=== PATIENT | male | born 1940 | race Caucasian/White ===

== ENCOUNTER 2016-12-27 08:41 | Outpatient (CLI) | payer MEDICARE, OTHER | END 2016-12-27 08:42 | disposition home or self-care (01) | DX: N18.3 Chronic kidney disease, stage 3 (moderate) (principal); I10 Essential (primary) hypertension; E11.51 Type 2 diabetes mellitus with diabetic peripheral angiopathy without gangrene ==

== ENCOUNTER 2017-05-09 08:31 | Outpatient (CLI) | payer MEDICARE, OTHER ==
[2017-05-09 13:02] LABS: ALBUMIN/GLOBULIN RATIO 1.1 (1.0-2.2); BILIRUBIN,TOTAL 0.2 mg/dL (0.2-1.0); CALCIUM 8.8 mg/dL (8.5-10.3); CREATININE 1.2 mg/dL (0.6-1.2); POTASSIUM 4.3 mmol/L (3.5-5.0); TOTAL PROTEIN 7.2 g/dL (6.7-8.2)
[2017-05-09 13:22] LABS: HEMOGLOBIN A1C 1.02 g/dL
== END 2017-05-09 08:32 | disposition home or self-care (01) ==
LOC: LAB.WCP 08:31
PROVIDERS: ATTEND Family Medicine
DX: N18.3 Chronic kidney disease, stage 3 (moderate) (principal)
CPT/HCPCS: 36415; 80053; 83036

== ENCOUNTER 2017-08-08 10:00 | Outpatient (CLI) | payer MEDICARE, OTHER ==
[2017-08-08 13:33] LABS: ALBUMIN/GLOBULIN RATIO 1.1 (1.0-2.2); BILIRUBIN,TOTAL 0.4 mg/dL (0.2-1.0); CALCIUM 8.8 mg/dL (8.5-10.3); CREATININE 1.3 mg/dL (0.6-1.2); POTASSIUM 3.8 mmol/L (3.5-5.0); TOTAL PROTEIN 7.4 g/dL (6.7-8.2)
[2017-08-08 14:05] LABS: HEMOGLOBIN A1C 1.02 g/dL
== END 2017-08-08 10:01 | disposition home or self-care (01) ==
LOC: LAB.WCP 10:00
PROVIDERS: ATTEND Family Medicine
DX: E11.51 Type 2 diabetes mellitus with diabetic peripheral angiopathy without gangrene (principal)
CPT/HCPCS: 36415; 80053; 83036

== ENCOUNTER 2017-08-22 08:00 | Outpatient (CLI) | payer MEDICARE, OTHER ==
[2017-08-22 14:01] LABS: CHOL/HDL RATIO 5.3 (<5.0); CHOLESTEROL 192 mg/dL; HDL CHOLESTEROL 36 mg/dL
[2017-08-22 14:26] LABS: LDL/HDL RATIO 3.2 (<3.6); TRIGLYCERIDES 199 mg/dL; VLDL CHOLESTEROL 40 mg/dL
== END 2017-08-22 08:01 | disposition home or self-care (01) ==
LOC: LAB.WCP 08:00
PROVIDERS: ATTEND Family Medicine
DX: I25.10 Atherosclerotic heart disease of native coronary artery without angina pectoris (principal); E78.5 Hyperlipidemia, unspecified
CPT/HCPCS: 36415; 80061

== ENCOUNTER 2017-10-25 08:00 | Outpatient (CLI) | payer MEDICARE, OTHER ==
[2017-10-25 13:25] LABS: ALBUMIN 3.8 g/dL (3.2-5.5); ALBUMIN/GLOBULIN RATIO 1.1 (1.0-2.2); ALKALINE PHOSPHATASE 53 IU/L (42-121); ALT ALANINE AMINOTRANSFERASE 40 IU/L (10-60); AST ASPARTATE AMINOTRANSFERASE 34 IU/L (10-42); BILIRUBIN,TOTAL 0.3 mg/dL (0.2-1.0); BUN - BLOOD UREA NITROGEN 24 mg/dL (6-20); CALCIUM 8.5 mg/dL (8.5-10.3); CARBON DIOXIDE - CO2 26 mmol/L (21-32); CHLORIDE 103 mmol/L (101-111); CHOL/HDL RATIO 3.7 (<5.0); CHOLESTEROL 126 mg/dL; CREATININE 1.4 mg/dL (0.6-1.2); GFR - MDRD 49 (>89); GLUCOSE 168 mg/dL (70-100); HDL CHOLESTEROL 34 mg/dL; LDL CHOLESTEROL,CALCULATED 65 mg/dL; LDL/HDL RATIO 1.9 (<3.6); SODIUM 135 mmol/L (135-145); TOTAL PROTEIN 7.4 g/dL (6.7-8.2); VLDL CHOLESTEROL 27 mg/dL
[2017-10-25 13:52] LABS: HB2 TOTAL 15.8 g/dL; HEMOGLOBIN A1C 0.92 g/dL; HEMOGLOBIN A1C % 7.5 % (4.6-6.2)
== END 2017-10-25 08:01 | disposition home or self-care (01) ==
LOC: LAB.WCP 08:00
PROVIDERS: ATTEND Family Medicine
DX: I25.10 Atherosclerotic heart disease of native coronary artery without angina pectoris (principal); E78.5 Hyperlipidemia, unspecified; E11.51 Type 2 diabetes mellitus with diabetic peripheral angiopathy without gangrene; I10 Essential (primary) hypertension; Z79.899 Other long term (current) drug therapy
CPT/HCPCS: 36415; 80053; 80061; 82043; 83036; 83721; 84443

== ENCOUNTER 2018-03-28 09:10 | Outpatient (CLI) | payer MEDICARE, OTHER ==
[2018-03-28 12:45] LABS: BASOPHILS % (AUTO) 0.5 %; EOSINOPHILS # (AUTO) 0.2 10^3/uL (0.0-0.7); EOSINOPHILS % (AUTO) 3.3 %; HGB - HEMOGLOBIN 13.9 g/dL (14.0-18.0); LYMPHOCYTES # (AUTO) 0.9 10^3/uL (1.5-3.5); LYMPHOCYTES % (AUTO) 15.6 %; MEAN CORPUSCULAR HEMOGLOBIN 28.4 pg (27.0-31.0); MEAN CORPUSCULAR HGB CONC 32.8 g/dL (32.0-36.0); MEAN CORPUSCULAR VOLUME 86.7 fL (80.0-94.0); MEAN PLATELET VOLUME 8.6 fL (7.4-11.4); MONOCYTES # (AUTO) 0.7 10^3/uL (0.0-1.0); MONOCYTES % (AUTO) 11.4 %; NEUTROPHILS % (AUTO) 69.2 %; PLT - PLATELET COUNT 218 10^3/uL (130-450); RED BLOOD COUNT 4.88 10^6/uL (4.70-6.10); RED CELL DISTRIBUTION WIDTH 15.3 % (12.0-15.0); WHITE BLOOD COUNT 5.8 x10^3/uL (4.8-10.8)
[2018-03-28 12:53] LABS: HB2 TOTAL 15.7 g/dL; HEMOGLOBIN A1C 0.98 g/dL; HEMOGLOBIN A1C % 7.9 % (4.6-6.2)
[2018-03-28 13:00] LABS: ALBUMIN 3.5 g/dL (3.2-5.5); ALBUMIN/GLOBULIN RATIO 0.9 (1.0-2.2); ALKALINE PHOSPHATASE 56 IU/L (42-121); ALT ALANINE AMINOTRANSFERASE 37 IU/L (10-60); AST ASPARTATE AMINOTRANSFERASE 31 IU/L (10-42); BILIRUBIN,TOTAL 0.6 mg/dL (0.2-1.0); BUN - BLOOD UREA NITROGEN 25 mg/dL (6-20); CALCIUM 8.6 mg/dL (8.5-10.3); CARBON DIOXIDE - CO2 28 mmol/L (21-32); CHLORIDE 100 mmol/L (101-111); CHOL/HDL RATIO 3.3 (<5.0); CHOLESTEROL 117 mg/dL; CREATININE 1.4 mg/dL (0.6-1.2); GFR - MDRD 49 (>89); GLUCOSE 131 mg/dL (70-100); HDL CHOLESTEROL 35 mg/dL; LDL CHOLESTEROL,CALCULATED 61 mg/dL; LDL/HDL RATIO 1.7 (<3.6); SODIUM 134 mmol/L (135-145); TOTAL PROTEIN 7.3 g/dL (6.7-8.2); VLDL CHOLESTEROL 21 mg/dL
== END 2018-03-28 09:11 | disposition home or self-care (01) ==
LOC: LAB.WCP 09:10
PROVIDERS: ATTEND Family Medicine
DX: E78.5 Hyperlipidemia, unspecified (principal); I25.10 Atherosclerotic heart disease of native coronary artery without angina pectoris; E11.51 Type 2 diabetes mellitus with diabetic peripheral angiopathy without gangrene
CPT/HCPCS: 36415; 80053; 80061; 83036; 83721; 85025

== ENCOUNTER 2018-09-28 08:44 | Outpatient (CLI) | payer MEDICARE, OTHER ==
[2018-09-28 14:03] LABS: ALBUMIN 3.7 g/dL (3.2-5.5); BILIRUBIN,TOTAL 0.5 mg/dL (0.2-1.0); CALCIUM 8.6 mg/dL (8.5-10.3); CREATININE 1.3 mg/dL (0.6-1.2); TOTAL PROTEIN 7.4 g/dL (6.7-8.2)
[2018-09-28 14:07] LABS: HB2 TOTAL 14.7 g/dL; HEMOGLOBIN A1C 0.72 g/dL; HEMOGLOBIN A1C % 6.6 % (4.6-6.2)
== END 2018-09-28 23:59 | disposition home or self-care (01) ==
LOC: LAB.WCP 08:44
PROVIDERS: ATTEND Family Medicine
DX: E11.59 Type 2 diabetes mellitus with other circulatory complications (principal)
CPT/HCPCS: 36415; 80053; 83036

== ENCOUNTER 2019-01-02 08:00 | Outpatient (CLI) | payer MEDICARE, OTHER ==
[2019-01-02 13:22] LABS: ALBUMIN 3.7 g/dL (3.2-5.5); ALBUMIN/GLOBULIN RATIO 1.1 (1.0-2.2); BILIRUBIN,TOTAL 0.6 mg/dL (0.2-1.0); CALCIUM 8.8 mg/dL (8.5-10.3); CREATININE 1.2 mg/dL (0.6-1.2)
[2019-01-02 13:57] LABS: HB2 TOTAL 14.6 g/dL; HEMOGLOBIN A1C 0.77 g/dL
== END 2019-01-02 23:59 | disposition home or self-care (01) ==
LOC: LAB.WCP 08:00
PROVIDERS: ATTEND Family Medicine
DX: R05 Cough (principal); E11.51 Type 2 diabetes mellitus with diabetic peripheral angiopathy without gangrene
CPT/HCPCS: 36415; 80053; 82043; 83036

== ENCOUNTER 2019-02-09 07:34 | Outpatient (CLI) | payer MEDICARE, OTHER ==
[2019-02-09] MEDS ORDERED: IOVERSOL 320 100 ML VIAL IVP ONE ×3 (07:51→09:21)
[2019-02-09] MEDS ORDERED: IOVERSOL 320 50 ML VIAL ONE (07:51)
[2019-02-09 08:12] LABS: CREATININE 1.6 mg/dL (0.6-1.2)
[2019-02-09] MEDS ORDERED: IOVERSOL 320 50 ML VIAL PO ONE (09:26)
[2019-02-09] MEDS ORDERED: BARIUM SULFATE 176 GM BOTTLE PO ONE (09:53)
[2019-02-09] MEDS ORDERED: BARIUM SULFATE 135 ML BOTTLE PO ONE (09:53)
--- NOTE | 2019-02-09 10:05 | CT Report ---
Reason: DYSPHAGIA, FOOD STICKING Procedure Date: 02/09/2019 Accession Number: [id number] / [id number] Procedure: CT - Abdomen/Pelvis W CPT Code: FULL RESULT: EXAM: CT ABDOMEN AND PELVIS EXAM DATE: 02/09/2019 09:19 AM. CLINICAL HISTORY: Dysphagia. Patient reports food sticking in the distal esophagus. COMPARISONS: None. TECHNIQUE: Routine helical CT imaging was performed through the abdomen and pelvis. IV contrast: 80 mL of Optiray 320. Enteric contrast: Yes. Reconstructions: Coronal and sagittal. In accordance with CT protocol optimization, one or more of the following dose reduction techniques were utilized for this exam: automated exposure control, adjustment of mA and/or KV based on patient size, or use of iterative reconstructive technique. FINDINGS: Lung Bases: Dependent atelectasis in the lung bases. Liver: Normal. No masses. Gallbladder/Bile Ducts: Multiple stones in the gallbladder lumen. No gallbladder wall thickening or pericholecystic fluid. No intrahepatic or extrahepatic biliary dilation. Retroperitoneal calcification posterior and inferior to the ampulla of Vater. Spleen: Normal. Pancreas: Normal. Adrenal Glands: Normal. Kidneys: Interpolar region renal parenchymal scar. Left renal atrophy with poor parenchymal enhancement. No stones or hydronephrosis. Peritoneal Cavity/Bowel: Small hiatal hernia. Colonic diverticulosis without diverticulitis. The remainder of the intra-abdominal gastrointestinal tract is unremarkable. No free fluid, free air or adenopathy. No masses or acute inflammatory process. The appendix is well visualized and normal. Pelvic Organs: The bladder, prostate gland and seminal vesicles are unremarkable. Vasculature: Distal abdominal aortic aneurysm with aortobifemoral covered stents. The aneurysm measures 5 cm in AP diameter (series 3 image 38). Normal course and caliber of the inferior vena cava. Bones: Multilevel thoracic and lumbar spondylosis. Other: None. IMPRESSION: 1. Small hiatal hernia. 2. Colonic diverticulosis. 3. The remainder of the intra-abdominal gastrointestinal tract is unremarkable. 4. Postsurgical changes involving the distal abdominal aortic aneurysm. 5. Interpolar region right renal parenchymal scar and uniform left renal cortical atrophy. 6. Cholelithiasis without CT evidence for acute cholecystitis. RADIA
--- NOTE | 2019-02-09 10:16 | XRAY Report ---
Reason: DYSPAHGIA Procedure Date: 02/09/2019 Accession Number: [id number] / [id number] Procedure: FL - Esophogram CPT Code: FULL RESULT: EXAM: BARIUM ESOPHAGRAM EXAM DATE: 02/09/2019 09:52 AM. CLINICAL HISTORY: Dysphagia. COMPARISONS: None. TECHNIQUE: Routine double contrast esophagram. Fluoroscopy Time: 2 minutes 58 seconds. Number of Images: 17. FINDINGS: Swallowing Mechanism: Normal. No tracheal aspiration or penetration. Esophageal Motility: Present but diminished primary peristaltic stripping wave. No tertiary contractions observed. Mucosa: Mild nonspecific mucosal irregularity of the distal esophageal mucosa at the GE junction just above a small hiatal hernia. Area appeared to be dynamic with observation with no discrete ulceration or mass. Focal esophagitis cannot be excluded. Gastroesophageal Junction: Small hiatal hernia. No appreciable stricture or significant reflux. Other: None. IMPRESSION: 1. Small hiatal hernia. Mild mucosal irregularity just above the hiatal hernia without appreciable mass, stricture or ulceration. If there is persistent clinical concern, consider direct visualization to exclude esophagitis. 2. Present but weak/diminished peristaltic primary stripping wave. No tertiary contractions observed at this exam. RADIA
--- NOTE | 2019-02-09 10:52 | CT Report ---
Reason: DYSPHAGIA, FOOD STICKING Procedure Date: 02/09/2019 Accession Number: [id number] / [id number] Procedure: CT - CHEST W CPT Code: FULL RESULT: EXAM: CT CHEST EXAM DATE: 02/09/2019 09:19 AM. CLINICAL HISTORY: Dysphagia, food sticking. COMPARISONS: None. TECHNIQUE: Routine helical CT imaging was performed through the chest. IV contrast: 80 mL of Optiray 320 contrast. Reconstructions: Coronal and sagittal. In accordance with CT protocol optimization, one or more of the following dose reduction techniques were utilized for this exam: automated exposure control, adjustment of mA and/or KV based on patient size, or use of iterative reconstructive technique. FINDINGS: Vasculature: There is dilatation of the main pulmonary segment at 3.6 cm; right and left main pulmonary arteries are also prominent at 2.6 cm bilaterally. There is atherosclerotic ectasia of the aorta measuring 3.3 cm in the ascending segment. Lungs/Pleura: No nodules, bronchial thickening, consolidation, or edema. Small areas of dependent atelectasis No pericardial or pleural effusion. No pneumothorax. Mediastinum: Sequela of prior CABG. 4 chamber cardiac enlargement, but particularly the right ventricle. Heavy calcification of the [place] coronary arteries.. No adenopathy or masses. There is a small hiatal hernia. There is appearance of circumferential nonspecific wall thickening of the distal 2 cm of the esophagus just above the hiatal hernia which could be artifact from redundancy versus a true mucosal thickening. If there is persistent clinical concern, consider direct visualization with endoscopy. There is no discrete mass or ulceration, and there is no periesophageal adenopathy. Bones: Unremarkable. Visualized Abdomen: Dictated separately. Cholelithiasis without evidence of cholecystitis. Partial inclusion of aortic endograft. Other: None. IMPRESSION: 1. Small hiatal hernia. Appearance of nonspecific wall thickening versus artifactual redundancy due to hiatal hernia evolving distal 2 cm of the esophagus just above the GE junction. No appreciable mass, ulceration and no periesophageal adenopathy. If there is persistent clinical concern regarding symptoms, consider direct visualization to exclude esophagitis. 2. Four-chamber cardiac enlargement, most prominent in the right ventricle. Dilatation of the central pulmonary vessels. Constellation of findings suggests underlying pulmonary artery hypertension. 3. Atherosclerotic ectasia without aneurysmal dilatation of the thoracic aorta. RADIA
== END 2019-02-09 07:35 | disposition home or self-care (01) ==
LOC: LAB 07:34 → DI 07:35
PROVIDERS: ATTEND Surgery
DX: K44.9 Diaphragmatic hernia without obstruction or gangrene (principal); K57.30 Diverticulosis of large intestine without perforation or abscess without bleeding; I71.4 Abdominal aortic aneurysm, without rupture; N26.1 Atrophy of kidney (terminal); K80.20 Calculus of gallbladder without cholecystitis without obstruction; I51.7 Cardiomegaly; I77.810 Thoracic aortic ectasia
CPT/HCPCS: 36415; 71260; 74177; 74220; 82565; A9270; Q9967

== ENCOUNTER 2019-02-16 13:54 | Outpatient (CLI) | payer MEDICARE, OTHER | END 2019-02-16 13:55 | disposition home or self-care (01) | LOC: DI 13:54 | PROVIDERS: ATTEND Family Medicine | DX: I51.7 Cardiomegaly (principal); I77.810 Thoracic aortic ectasia | CPT/HCPCS: 93306 ==

== ENCOUNTER 2019-02-21 11:19 | Outpatient (CLI) | payer MEDICARE, OTHER ==
[2019-02-21 18:41] LABS: CALCIUM 9.1 mg/dL (8.5-10.3); CREATININE 1.3 mg/dL (0.6-1.2)
[2019-02-21 18:44] LABS: BASOPHILS % (AUTO) 0.7 %; EOSINOPHILS # (AUTO) 0.1 10^3/uL (0.0-0.7); EOSINOPHILS % (AUTO) 1.6 %; HGB - HEMOGLOBIN 13.7 g/dL (14.0-18.0); LYMPHOCYTES # (AUTO) 0.9 10^3/uL (1.5-3.5); LYMPHOCYTES % (AUTO) 12.8 %; MEAN CORPUSCULAR HEMOGLOBIN 27.7 pg (27.0-31.0); MEAN CORPUSCULAR HGB CONC 31.9 g/dL (32.0-36.0); MEAN CORPUSCULAR VOLUME 86.6 fL (80.0-94.0); MEAN PLATELET VOLUME 8.8 fL (7.4-11.4); MONOCYTES # (AUTO) 0.5 10^3/uL (0.0-1.0); MONOCYTES % (AUTO) 7.7 %; NEUTROPHILS # (AUTO) 5.4 10^3/uL (1.5-6.6); NEUTROPHILS % (AUTO) 77.2 %; PLT - PLATELET COUNT 225 10^3/uL (130-450); RED BLOOD COUNT 4.94 10^6/uL (4.70-6.10); RED CELL DISTRIBUTION WIDTH 15.3 % (12.0-15.0)
== END 2019-02-21 11:20 | disposition home or self-care (01) ==
LOC: LAB.WCP 11:19
PROVIDERS: ATTEND Family Medicine
DX: N18.3 Chronic kidney disease, stage 3 (moderate) (principal)
CPT/HCPCS: 36415; 80048; 85025

== ENCOUNTER 2019-03-01 15:37 | Observation (INO) | payer MEDICARE, OTHER ==
[~2019-03-01 15:37] MED LIST: DEXTROSE 50% ABBOJECT 25 GM/50 ML SYRINGE ONE; LACTATED RINGERS 1,000 ML IV ONE; LIDO GARGLE 30 ML BOTTLE TOP ONE; MIDAZOLAM 2 MG/2 ML VIAL IVP ONE; SODIUM CHLORIDE FLUSH 0.9% 10 ML SYRINGE IVP PRN; fentaNYL 100 MCG/2 ML VIAL IVP ONE
[2019-03-01] MEDS ORDERED: DEXTROSE 5%-0.9% NACL 1,000 ML IV SCH (16:00)
[2019-03-01] MEDS: SODIUM CHLORIDE FLUSH 0.9% 10 ML SYRINGE IVP SCH ×2 (16:22→23:34)
--- NOTE | 2019-03-01 16:56 | HISTORY & PHYSICAL EXAMINATION ---
Chief Complaint - Chief Complaint Chief Complaint: hypoglycemia, bradycardia History of Present Illness - Admitted From Admitted From:: [facility] - History Obtained From Records Reviewed: yes History obtained from: patient, chart review, Centricity Exam Limitations: none - History of Present Illness HPI Comment/Other: Juan Ramon Ramirez (Dick) is a 78-year old male with an extensive past medical history including essential hypertension, hyperlipidemia, coronary artery disease, status post 2 vessel CABG, CVA, dysphagia, insulin dependent diabetes mellitus type 2, BPH, erectile dysfunction, nocturia, and depression. He was brought into the hospital electively to undergo an EGD with Dr. Mukund Thomas. The procedure went well without any anesthesia related complications. Pre- procedure, the patient was found to have a documented blood glucose of 44, and was asymptomatic. He was given an amp of Dextrose, which brought his glucose to an acceptable value of 96. Post-procedure, he was found to again be down to 44 mg/dl. He was given a meal to help maintain his sugars. He was also found to have ongoing bradycardia with rates 40-50's. He was admitted to observation with D5 IV maintenance fluids, frequent blood sugar checks, and telemetry. History - Past Medical History Cardiovascular: reports: Hypertension, High cholesterol, Other Respiratory: reports: None Neuro: reports: Peripheral neuropathy Endocrine/Autoimmune: reports: Type 2 diabetes GI: reports: GERD INTELLIGENCE OPERATIONS: reports: None : reports: Nocturia HEENT: reports: Chronic vision loss, Chronic sinusitis, Chronic hearing loss Psych: reports: Depression Musculoskeletal: reports: None, Osteoarthritis Derm: reports: None MRSA Hx?: No - Past Surgical History Ortho: reports: Knee replacement Cardiovascular: reports: Other - Family & Social History Family History: Mother: , Father: , Brother: Family History Comment/Other: Father: fairly severe degenerative arthritis. Mother: of leukemia- AML. Brother: CLL Living arrangement: At home Living Situation: With spouse/s.o. - Substance History Use: Uses substance without health or social issues: NONE Abuse: Recurrent use of substance despite neg consequences: NONE Dependence: Experiences withdrawal or developed tolerances: NONE - POLST Patient has POLST: No POLST Status: Full Code Meds/Allgy - Home Medications Home Medications: Ambulatory Orders Medication Instructions Recorded Confirmed Alfuzosin HCl [Uroxatral] 10 mg PO DAILY 02/28/19 03/01/19 Furosemide [Lasix] 40 mg PO DAILY 02/28/19 03/01/19 Insulin Glulisine [Apidra] 12 - 20 unit SUBQ DAILY PRN 02/28/19 03/01/19 Isosorbide Mononitrate ER [Imdur] 30 mg PO DAILY 02/28/19 02/28/19 Pantoprazole [Protonix] 40 mg PO QDAC 02/28/19 03/01/19 Rosuvastatin Calcium [Crestor] 10 mg PO DAILY 02/28/19 03/01/19 Sucralfate [Carafate] 1 gm PO ACHS 02/28/19 03/01/19 Clopidogrel Bisulfate [Clopidogrel] 37.5 mg PO DAILY 03/01/19 03/01/19 Sildenafil Citrate [Viagra] 100 mg PO PRN PRN 03/01/19 03/01/19 Insulin Glargine [Lantus Solostar] 41 units SUBQ BID #1 pen 03/02/19 - Allergies Allergies/Adverse Reactions: Allergies Allergy/AdvReac Type Severity Reaction Status Date / Time No Known Drug Allergies Allergy Verified 08/15/15 17:33 Review of Systems - Constitutional Constitutional: reports: Fatigue, Weakness, Poor appetite - Eyes Eyes: reports: Vision loss - Ears, Nose & Throat Ears, Nose & Throat: reports: Hearing loss, Hearing aids, Postnasal drainage - Cardiovascular Cariovascular: reports: Irregular heart rate, Edema, Lightheadedness, Orthopnea - Respiratory Respiratory: reports: Cough, Orthopnea, SOB with exertion - Gastrointestinal Gastrointestinal: reports: Abdominal distention, Nausea, Reflux/heartburn, Poor appetite - Genitourinary Genitourinary: reports: Nocturia - Musculoskeletal Musculoskeletal: reports: Back pain, Muscle aches, Joint swelling - Integumentary Integumentary: reports: Dryness - Neurological Neurological: reports: General weakness, Pre-existing deficit - Psychiatric Psychiatric: reports: Depression - All Other Systems All Other Systems: reports: Reviewed and negative Prior Level of Functionality: Independent at home, drives a car, takes care of his . Exam - Vital Signs Reviewed Vital Signs: Yes Vital Signs: Vital Signs x48h Temp Pulse Pulse Resp BP BP Pulse Ox 03/01/19 16:14 36.4 C L 47 L 20 159/58 H 97 03/01/19 15:45 37.2 C 49 L 16 162/89 H 99 03/01/19 15:30 37.1 C 51 L 18 166/61 H 99 03/01/19 15:15 47 L 16 169/71 H 98 03/01/19 15:00 37.0 C 48 L 15 154/68 H 98 03/01/19 14:50 37.0 C 51 L 16 148/68 H 98 03/01/19 14:40 48 L 15 128/75 98 03/01/19 14:33 37.1 C 46 L 14 129/50 L 98 03/01/19 12:55 36.4 C L 47 L 16 150/63 H 97 - Physical Exam General Appearance: positive: No acute distress, Alert Eyes Bilateral: positive: PERRL ENT: positive: Pharynx nml, No signs of dehydration Neck: positive: Thyroid nml, No JVD, Trachea midline Respiratory: positive: Chest non-tender, No respiratory distress, Breath sounds nml Cardiovascular: positive: Irregularly irregular, Bradycardia, Systolic murmur, Decreased pulse(s) Peripheral Pulses: positive: 1+ Abdomen: positive: Non-tender, Nml bowel sounds, Hepatomegaly, Other (rounded, soft) Back: positive: Nml inspection Skin: positive: Color nml, No rash, Warm, Dry Extremities: positive: Non-tender, Full ROM, Pedal edema Neurologic/Psychiatric: positive: Oriented x3, CN's nml (2-12), Motor nml, Sensation nml, Mood/affect nml Reflexes: Bicep (R): 3+, Bicep (L): 3+ Conclusion/Plan - Problem List (1) Hypoglycemia associated with type 2 diabetes mellitus Conclusion/Plan: - The patient was brought into the hospital electively to undergo an EGD with Dr. Mukund Thomas today - The procedure went well without any anesthesia related complications - Pre-procedure, the patient was found to have a documented blood glucose of 44, and was asymptomatic - He was given an amp of Dextrose, which brought his glucose to an acceptable value of 96 - Post-procedure, he was found to again be down to 44 mg/dl. He was given a meal to help maintain his sugars - Home Lantus dose is 41 units BID, and SSI with Glulisine Plan: Continue IV fluids with D5NS @ 100, monitor blood sugars every 3 hours overnight, reduce nightly Lantus to 10 units, low dose SSI, regular diet (2) Bradycardia Conclusion/Plan: - Patient reported that he took his BB prior to procedure this AM - Heart rates on this admission have been 40-50's Plan: Holding BB, monitor on tele (3) Esophageal stricture Conclusion/Plan: - Now statsu post lective Esophagogastroduodenoscopy with biopsy - Patient reports he remembers developing a chronic cough some time around of 2017 - Understands that he may have scar tissue causing this stricture - Dypshpagia noted on his chart since having his CVA - Soft foods are more tolerable than sticky or bulky foods - Continues to have moderate to severe pain after attempting to swallow certain foods - No pain with liquids Plan: Await final biopsy results (4) Diabetes mellitus type 2, insulin dependent Conclusion/Plan: - Longstanding DM with several vascular complications including, BPH, CAD, CVA, peripheral neuropathy - Home Lantus dose is 41 units BID, and SSI with Glulisine Plan: Continue IV fluids with D5NS @ 100, monitor blood sugars every 3 hours overnight, reduce nightly Lantus to 10 units, low dose SSI, regular diet (5) Orthopnea Conclusion/Plan: - Patient admits to sleeping in recliner each night at home - CHF- diastolic dysfunction on last echo in the chart - No home oxygen use Plan: Provide room recliner if needed, otherwise HOB up for sleeping (6) CKD (chronic kidney disease) stage 3, GFR 30-59 ml/min Conclusion/Plan: - Chart notes that the patient only has a right kidney - Imaging indicates a left kidney with atrophy - Labs on 02/21/19; GFR was 53 and creatinine was 1.3 Plan: Holding diuretics, continue with gentle IVFs, labs in the AM (7) Erectile dysfunction Conclusion/Plan: - Takes Viagra at home, continues here (8) Hyperlipidemia Conclusion/Plan: - takes Crestor at home, continued here (9) Status post aorto-coronary artery bypass graft Conclusion/Plan: - 2 vessel CABG - History of CAD, DM BPH, and CVA Plan: Continue home meds when able (10) Diastolic CHF with preserved left ventricular function, NYHA class 2 Conclusion/Plan: - Recent echocardiogram shows a grade 1 diastolic dysfunction, with LVH - Patient is prescribed lasix at home, now on hold since running IV fluids - No documented use of CPAP - Admits to orthonpnea - On exam, enlarged abdominal girth, diminished lung sounds, + systolic mumur in the mitral region Plan: Daily weights, resume diuretic in the AM, continue IV fluids overnight, monitor for fluid overload or increased SOB - Lab Results Lab results reviewed: Yes Tayo Bones: 03/02/19 04:45 03/02/19 04:45 Core Measures - Anticipated LOS I expect patient to be DC'd or transferred within 96 hours.: Yes - DVT/VTE - Prophylaxis VTE/DVT Device ordered at admit?: Yes VTE/DVT Prophylaxis med ordered at admit?: No Not Ordered - Medical Reason: Contraindicated - Stroke - Rehab Assessment Rehab services assessment to be ordered?: No Not Ordered - Medical Reason: Contraindicated - AMI - Statin at Admit Aspirin Prescribed on Admit: No Not Ordered - Medical Reason: Contraindicated
[2019-03-01 18:12] LABS: HB2 TOTAL 13.7 g/dL; HEMOGLOBIN A1C 0.74 g/dL; HEMOGLOBIN A1C % 7.1 % (4.6-6.2)
[2019-03-01] MEDS ORDERED: INSULIN GLARGINE 300 UNIT/3 ML PEN SUBQ SCH (21:00)
[2019-03-01] MEDS ORDERED: INSULIN ASPART 300 UNIT/3 ML PEN SUBQ SCH (21:00)
[2019-03-02] MEDS ORDERED: SILDENAFIL CITRATE 100 MG PO PRN (00:57)
[2019-03-02 05:37] LABS: BASOPHILS % (AUTO) 0.5 %; EOSINOPHILS # (AUTO) 0.1 10^3/uL (0.0-0.7); HGB - HEMOGLOBIN 13.5 g/dL (14.0-18.0); LYMPHOCYTES # (AUTO) 0.9 10^3/uL (1.5-3.5); LYMPHOCYTES % (AUTO) 12.7 %; MEAN CORPUSCULAR HEMOGLOBIN 28.2 pg (27.0-31.0); MEAN CORPUSCULAR HGB CONC 32.9 g/dL (32.0-36.0); MEAN CORPUSCULAR VOLUME 85.5 fL (80.0-94.0); MEAN PLATELET VOLUME 8.5 fL (7.4-11.4); MONOCYTES # (AUTO) 0.7 10^3/uL (0.0-1.0); MONOCYTES % (AUTO) 10.7 %; NEUTROPHILS # (AUTO) 5.1 10^3/uL (1.5-6.6); NEUTROPHILS % (AUTO) 74.1 %; PLT - PLATELET COUNT 163 10^3/uL (130-450); RED BLOOD COUNT 4.79 10^6/uL (4.70-6.10); RED CELL DISTRIBUTION WIDTH 14.9 % (12.0-15.0); WHITE BLOOD COUNT 6.9 x10^3/uL (4.8-10.8)
[2019-03-02 05:46] LABS: ALBUMIN 3.4 g/dL (3.2-5.5); ALBUMIN/GLOBULIN RATIO 1.1 (1.0-2.2); BILIRUBIN,TOTAL 0.6 mg/dL (0.2-1.0); CALCIUM 8.5 mg/dL (8.5-10.3); CREATININE 1.3 mg/dL (0.6-1.2); MAGNESIUM 2.2 mg/dL (1.7-2.8); PHOSPHORUS 2.9 mg/dL (2.5-4.6); TOTAL PROTEIN 6.5 g/dL (6.7-8.2)
[2019-03-02] MEDS ORDERED: SUCRALFATE 1 GM/10 ML UDC PO SCH (07:00)
[2019-03-02] MEDS ORDERED: PANTOPRAZOLE 40 MG TABLET PO SCH (08:00)
[2019-03-02 08:16] VITALS: BP 153/57
[2019-03-02] MEDS ORDERED: FUROSEMIDE 40 MG TABLET PO SCH (09:00)
[2019-03-02] MEDS ORDERED: ISOSORBIDE MONONITRATE ER 30 MG TABLET PO SCH (09:00)
[2019-03-02] MEDS ORDERED: CLOPIDOGREL 75 MG TABLET PO SCH (09:00)
[2019-03-02] MEDS ORDERED: ATORVASTATIN 40 MG TABLET PO SCH (09:00)
[2019-03-02] MEDS ORDERED: POLYETHYLENE GLYCOL 3350 17 GM PACKET PO SCH (09:00)
[2019-03-02] MEDS ORDERED: TAMSULOSIN 0.4 MG CAPSULE PO SCH (09:00)
[2019-03-02] MEDS: SODIUM CHLORIDE FLUSH 0.9% 10 ML SYRINGE IVP SCH (09:25)
--- NOTE | 2019-03-02 10:08 | Discharge Plan ---
Discharge Plan Disposition: Home, Self Care Condition: Good Prescriptions: Insulin Glargine [Lantus Solostar] 41 units SUBQ BID #1 pen Diet: Diabetic Activity Restrictions: Activity as Tolerated Shower Restrictions: No Weight Bearing: Full Weight Additional Instructions or Follow Up instructions: You were admitted for continued low blood sugars and your heart rate staying in the 45-50 range. Your home medications showed you were on a beta mary called metoprolol, but your heart rate did not justify continuing this medication. Please STOP the metoprolol, and follow up with Dr. Raymond. Hypoglycemia can prove to be very harmful to patients of your age and chronic illnesses. Please avoid blood sugars lower than 140. Your target hemoglobin A1C should be 7.5-8.0%. Your value is 7.1% checked on 03/01/2019. Please see your PCP within one week. No Smoking: If you smoke, Please STOP! Call for help. Follow-up with: Luis Raymond MD [Primary Care Provider] -
--- NOTE | 2019-03-02 19:23 | DISCHARGE SUMMARY ---
"Discharge Summary Admit Date: 03/01/19 Discharge Date: 03/02/19 Discharging Provider: TRAV Adams Primary Care Provider: Amilcar Raymond Code Status: Attempt Resuscitation Condition at Discharge: Good Discharge Disposition: 01 Home, Self Care - DIAGNOSES Admission Diagnoses: Type 2 diabetes mellitus with hypoglycemia without coma (E11.649) Bradycardia, unspecified (R00.1) Esophageal obstruction (K22.2) Orthopnea (R06.01) Type 2 diabetes mellitus without complications (E11.9) Chronic kidney disease, stage 3 (moderate) (N18.3) Personal history of other diseases of male genital organs (Z87.438) Hyperlipidemia, unspecified (E78.5) Presence of aortocoronary bypass graft (Z95.1) Unspecified diastolic (congestive) heart failure (I50.30) Discharge Diagnoses with Status of Each Condition: Type 2 diabetes mellitus with hypoglycemia without coma (E11.649) improved, changed Lantus to 1/2 his usual home dose to be continued at home to prevent further episodes of hypoglycemia. Teaching given regarding A1C targets Bradycardia, unspecified (R00.1) Improved, still only 50-60's at the time of discharge. This may have contributed to his ongoing daily weakness Esophageal obstruction (K22.2) Stricture still present, biopsies pending, worrisome for malignancy. Patient not versed in this, surgery will deliver this news and go over results Orthopnea (R06.01) chronic, stable Type 2 diabetes mellitus without complications (E11.9) chronic, stable Chronic kidney disease, stage 3 (moderate) (N18.3) chronic, stable Personal history of other diseases of male genital organs (Z87.438) chronic, stable Hyperlipidemia, unspecified (E78.5) chronic, stable Presence of aortocoronary bypass graft (Z95.1) chronic, stable Unspecified diastolic (congestive) heart failure (I50.30) chronic, stable - HPI History of Present Illness: Juan Ramon Ramirez (Dick) is a 78-year old male with an extensive past medical history including essential hypertension, hyperlipidemia, coronary artery disease, status post 2 vessel CABG, CVA, dysphagia, insulin dependent diabetes mellitus type 2, BPH, erectile dysfunction, nocturia, and depression. He was brought into the hospital electively to undergo an EGD with Dr. Mukund Thomas. The procedure went well without any anesthesia related complications. Pre- procedure, the patient was found to have a documented blood glucose of 44, and was asymptomatic. He was given an amp of Dextrose, which brought his glucose to an acceptable value of 96. Post-procedure, he was found to again be down to 44 mg/dl. He was given a meal to help maintain his sugars. He was also found to have ongoing bradycardia with rates 40-50's. He was admitted to observation with D5 IV maintenance fluids, frequent blood sugar checks, and telemetry. - CONSULTS | PROCEDURES Consultations: General surgery- Dr. Thomas Procedures: Esophagogastroduodenoscopy with biopsy indicated for dysphagia - HOSPITAL COURSE Hospital Course: (1) Hypoglycemia associated with type 2 diabetes mellitus - The patient was brought into the hospital electively to undergo an EGD with Dr. Mukund Thomas - The procedure went well without any anesthesia related complications - Pre-procedure, the patient was found to have a documented blood glucose of 44, and was asymptomatic - He was given an amp of Dextrose, which brought his glucose to an acceptable value of 96 - Post-procedure, he was found to again be down to 44 mg/dl. He was given a meal to help maintain his sugars - Home Lantus dose is 41 units BID, and SSI with Glulisine, which was changed to just 20 units BID upon discharge - Teaching was provided about target A1C for elderly (2) Bradycardia - Patient reported that he took his BB prior to procedure this AM - Heart rates on this admission have been 40-50's - Recommended to stop BB at home, follow up with PCP (3) Esophageal stricture - Now status post elective Esophagogastroduodenoscopy with biopsy - Patient reports he remembers developing a chronic cough some time around of 2017 - Understands that he may have scar tissue causing this stricture - Dypshpagia noted on his chart since having his CVA - Soft foods are more tolerable than sticky or bulky foods - Continues to have moderate to severe pain after attempting to swallow certain foods - No pain with liquids - Await final biopsy results, which will be discussed during outpatient general surgery follow up (4) Diabetes mellitus type 2, insulin dependent - Longstanding DM with several vascular complications including, BPH, CAD, CVA, peripheral neuropathy - Home Lantus dose is 41 units BID, and SSI with Glulisine, which was changed to just 20 units BID upon discharge (5) Orthopnea - Patient admits to sleeping in recliner each night at home - CHF- diastolic dysfunction on last echo in the chart - No home oxygen use (6) CKD (chronic kidney disease) stage 3, GFR 30-59 ml/min - Chart notes that the patient only has a right kidney - Imaging indicates a left kidney with atrophy - Labs on 02/21/19; GFR was 53 and creatinine was 1.3 (7) Erectile dysfunction - Takes Viagra at home, continues here (8) Hyperlipidemia - takes Crestor at home, continued here (9) Status post aorto-coronary artery bypass graft - 2 vessel CABG - History of CAD, DM BPH, and CVA (10) Diastolic CHF with preserved left ventricular function, NYHA class 2 - Recent echocardiogram shows a grade 1 diastolic dysfunction, with LVH - Patient is prescribed lasix at home, now on hold since running IV fluids - No documented use of CPAP - Admits to orthonpnea - On exam, enlarged abdominal girth, diminished lung sounds, + systolic mumur in the mitral region (11) Disposition The patient was medically stable and motivated to return home with his . He was instructed to follow up with his PCP, stop his beta mary and cut his Lantus insulin dose in half. - ALLERGIES Allergies/Adverse Reactions: Allergies Allergy/AdvReac Type Severity Reaction Status Date / Time No Known Drug Allergies Allergy Verified 08/15/15 17:33 - MEDICATIONS Home Medications: Ambulatory Orders Medication Instructions Recorded Confirmed Alfuzosin HCl [Uroxatral] 10 mg PO DAILY 02/28/19 03/01/19 Furosemide [Lasix] 40 mg PO DAILY 02/28/19 03/01/19 Insulin Glulisine [Apidra] 12 - 20 unit SUBQ DAILY PRN 02/28/19 03/01/19 Isosorbide Mononitrate ER [Imdur] 30 mg PO DAILY 02/28/19 02/28/19 Pantoprazole [Protonix] 40 mg PO QDAC 02/28/19 03/01/19 Rosuvastatin Calcium [Crestor] 10 mg PO DAILY 02/28/19 03/01/19 Sucralfate [Carafate] 1 gm PO ACHS 02/28/19 03/01/19 Clopidogrel Bisulfate [Clopidogrel] 37.5 mg PO DAILY 03/01/19 03/01/19 Sildenafil Citrate [Viagra] 100 mg PO PRN PRN 03/01/19 03/01/19 Insulin Glargine [Lantus Solostar] 41 units SUBQ BID #1 pen 03/02/19 - PHYSICAL EXAM AT DISCHARGE General Appearance: positive: No acute distress, Alert Eyes Bilateral: positive: PERRL ENT: positive: Pharynx nml, No signs of dehydration Neck: positive: Thyroid nml, No JVD, Trachea midline Respiratory: positive: Chest non-tender, No respiratory distress, Breath sounds nml, Other (diminished bilaterally) Cardiovascular: positive: Regular rate & rhythm, No gallop, Bradycardia, Systol ic murmur, Decreased pulse(s) Peripheral Pulses: positive: 1+ Abdomen: positive: Non-tender, Nml bowel sounds, Hepatomegaly, Other (rounded, soft) Back: positive: Nml inspection Skin: positive: Color nml, No rash, Warm, Dry Extremities: positive: Non-tender, Full ROM, Pedal edema Neurologic/Psychiatric: positive: Oriented x3, CN's nml (2-12), Motor nml, Sensation nml, Mood/affect nml Reflexes: Bicep (R): 3+, Bicep (L): 3+ - LABS Result Diagrams: 03/02/19 04:45 03/02/19 04:45 - FOLLOW UP Follow Up: Disposition: Home, Self Care Condition: Good Prescriptions: Insulin Glargine [Lantus Solostar] 41 units SUBQ BID #1 pen STOP beta mary for sustained bradycardia for greater than 24 hours on telemetry Additional Instructions or Follow Up instructions: You were admitted for continued low blood sugars and your heart rate staying in the 45-50 range. Your home medications showed you were on a beta mary called metoprolol, but your heart rate did not justify continuing this medication. Please STOP the metoprolol, and follow up with Dr. Raymond. Hypoglycemia can prove to be very harmful to patients of your age and chronic illnesses. Please avoid blood sugars lower than 140. Your target hemoglobin A1C should be 7.5-8.0%. Your value is 7.1% checked on 03/01/2019. Please see your PCP within one week. - TIME SPENT Time Spent in Discharge (Minutes): 45"
--- NOTE | 2019-03-02 19:28 | ADVANCE CARE PLANNING NOTE ---
Advance Care Planning - Date/Time Date: 03/02/19 Time: 08:00 - Purpose of encounter Text: Establish goals of care, confirm code status and end of life wishes. - Parties in attendance Parties in attendance: The patient- Juan Ramon Ramirez Myself- TRAV Adams - Decisional capacity Decisional capacity of: Only mild short term memory loss. The patient can fully explain and elaborate his medical conditions. He is fully decisional today. - Subjective/Patient's story Subjective/Patient's story: The patient states that he does not wish to be a DNR at this time given the fact that he is his 's sole health care coordinator. He states, "I am not sure what my would do without me". He, without my prompting, does recall Dr. Thomas men tioning that the cause of his esophageal stricture may be caused by cancer, but understands that this will not be known until biopsy results are back. He states that he leads a pretty easy life right now and enjoys most days. He states that he has been having more episodes of weakness, in which he has to rest through out the day. - Objective/Medical story Objective/Medical Story: Juan Ramon Ramirez (Dick) is a 78-year old male with an extensive past medical history including essential hypertension, hyperlipidemia, coronary artery disease, status post 2 vessel CABG, CVA, dysphagia, insulin dependent diabetes mellitus type 2, BPH, erectile dysfunction, nocturia, and depression. He was brought into the hospital electively to undergo an EGD with Dr. Mukund Thomas. The procedure went well without any anesthesia related complications. Pre- procedure, the patient was found to have a documented blood glucose of 44, and was asymptomatic. He was given an amp of Dextrose, which brought his glucose to an acceptable value of 96. Post-procedure, he was found to again be down to 44 mg/dl. He was given a meal to help maintain his sugars. He was also found to have ongoing bradycardia with rates 40-50's. He was admitted to observation with D5 IV maintenance fluids, frequent blood sugar checks, and telemetry. * Code status was confirmed as FULL as he answered all 4 questions as YES; do you want chest compressions?- YES, do you want shocking?-YES, do you want cardiac medications to be administered?-YES, and do you want to be intubated?- YES Complications of such interventions were discussed, in particular the likelihood of some oxygen deprivation to the brain tissue. The patient confirmed that as long as his is still living, we should pursue all rescue efforts in the event of an emergency. Code status left as a FULL code. - Goals of Care Goals of care determinations: Goals of care determinants may include; A final biopsy result being found malignant, a sudden cardiac arrest, a sudden stroke, or a fall leading to a sentinel life altering injury. - Plan Plan: - Continue to treat acute illness of hypoglycemia and bradycardia -Suggest changes in medications upon discharge. - Code Status Code Status: Attempt Resuscitation - Time Spent on Advance Care Planning Time spent on advance care plannin
== END 2019-03-02 11:00 | disposition home or self-care (01) ==
LOC: SDS 15:37 → EDSDCBED 15:38 → UNDOFXSDCSVC 15:38 → UNDOFXSDCACCOM 15:40 → EDSDCBED 15:40 → UNDOFXSDCRRACCOM 15:40 → MS2 16:04 → SDS 16:04 → UNDOFXSDCACCOM 16:26 → UNDOFXSDCRRACCOM 16:26 → EDSDCBED 16:26 → UNDOFXSDCSVC 16:41 → MS2 17:50
PROVIDERS: ADMIT Nurse Practitioner; ATTEND Nurse Practitioner
PROC: 0DB38ZX Excision of Lower Esophagus, Via Natural or Artificial Opening Endoscopic, Diagnostic (ICD-10-PCS; principal; 2019-03-01 14:00)
DX: K22.2 Esophageal obstruction (principal); K22.8 Other specified diseases of esophagus; E11.65 Type 2 diabetes mellitus with hyperglycemia; I49.5 Sick sinus syndrome; E11.22 Type 2 diabetes mellitus with diabetic chronic kidney disease; I13.0 Hypertensive heart and chronic kidney disease with heart failure and stage 1 through stage 4 chronic kidney disease, or unspecified chronic kidney disease; N18.3 Chronic kidney disease, stage 3 (moderate); I50.30 Unspecified diastolic (congestive) heart failure; E11.42 Type 2 diabetes mellitus with diabetic polyneuropathy; E78.5 Hyperlipidemia, unspecified; R06.01 Orthopnea; I25.10 Atherosclerotic heart disease of native coronary artery without angina pectoris; Z79.4 Long term (current) use of insulin; N40.1 Benign prostatic hyperplasia with lower urinary tract symptoms; R35.1 Nocturia; F32.9 Major depressive disorder, single episode, unspecified; N52.9 Male erectile dysfunction, unspecified; H54.7 Unspecified visual loss; J32.9 Chronic sinusitis, unspecified; H91.90 Unspecified hearing loss, unspecified ear; M19.90 Unspecified osteoarthritis, unspecified site; Z96.652 Presence of left artificial knee joint; Z95.1 Presence of aortocoronary bypass graft; Z79.51 Long term (current) use of inhaled steroids; Z79.02 Long term (current) use of antithrombotics/antiplatelets; Z86.73 Personal history of transient ischemic attack (TIA), and cerebral infarction without residual deficits
CPT/HCPCS: 36415; 43239; 80053; 82977; 83036; 83735; 83880; 84100; 85025; A9270; G0378; J1815; J7120

== ENCOUNTER 2020-05-20 11:15 | Outpatient (CLI) | payer MEDICARE, OTHER ==
--- NOTE | 2020-05-20 14:03 | CONSULTATION NOTE ---
Palliative Care Follow Up - Referral Referring Provider: Dr. St Time of Visit: [id number] Referral setting: Home Referral Reason: Check ears for excess cerumen/[place] - Information Sources Records reviewed: Previous records reviewed History/Review of Systems obtained from: Patient Exam limitations: Clinical condition (KIPNUK) - History of Present Illness Update Brief HPI Update: This is an 80-year-old gentleman who was seen and evaluated in his home today at the request of his primary palliative ADMINISTRATIVE JUDGE Pravin to evaluate his ears. The patient wears bilateral hearing aids. He is perseverating in regards to having access cerumen and wishes to evaluate if removing the cerumen will allow him to hear better. He has had his present hearing aids for the last 6 months. He is noticed that things seem a little bit duller. He is turning the TV volume when listening. He denies ringing in his ears. He does report that he does clean his ears typically via Q-tip intermittently. He is never had his ears irrigated in the past. Patient has a past medical history of congestive heart failure diastolic this with preserved function, hypertension, hyper lipidemia, coronary artery disease, AAA, history of CVA, peripheral neuropathy, type 2 diabetes insulin-dependent, GERD, nocturia, 1 and working kidney, chronic vision loss, chronic sinusitis, chronic hearing loss, depression, anxiety, osteoarthritis, chronic back pain, persistent fatigue. Social History - Living Situation Living arrangement: At home Living Situation: With spouse/s.o. Medications/Allergies - Medications Home Medications: Ambulatory Orders Medication Instructions Recorded Confirmed Furosemide [Lasix] 40 mg PO DAILY 02/28/19 05/17/20 Insulin Glulisine [Apidra] 3 - 5 unit SUBQ DAILY PRN 02/28/19 05/17/20 Isosorbide Mononitrate ER [Imdur] 30 mg PO DAILY 02/28/19 05/17/20 Rosuvastatin Calcium [Crestor] 10 mg PO DAILY 02/28/19 05/17/20 Insulin Glargine [Lantus Solostar] 30 units SUBQ QDBREAKFAST 06/12/19 05/17/20 Metoprolol Tartrate 25 mg ORAL BID 06/12/19 05/17/20 Ondansetron HCl [Zofran] 8 mg PO Q8HR PRN 04/09/20 05/17/20 Aspirin [Children's Aspirin] 81 mg PO DAILY 04/25/20 05/17/20 HYDROcod/ACETAM 5/325 [[place] 5/325] 1 tab PO DAILY PRN 04/25/20 05/17/20 LORazepam [Ativan] 1 mg PO DAILY PRN 04/25/20 05/17/20 Sertraline [Zoloft] 75 mg PO DAILY MDD 25 mg + 50 mg 04/25/20 05/17/20 polyethylene glycoL 3350 [Miralax] 17 gm PO DAILY PRN 04/25/20 05/17/20 - Allergies Allergies/Adverse Reactions: Allergies Allergy/AdvReac Type Severity Reaction Status Date / Time No Known Drug Allergies Allergy Verified 04/30/20 13:24 Review of Systems - Ears, Nose & Throat Ears, Nose & Throat: reports: Other (see HPI for full details) Physical Exam - Physical Exam General Appearance: positive: No acute distress, Alert Eyes Bilateral: positive: Normal inspection ENT: positive: No signs of dehydration, Other (Right ear: dry, yellow cerumen noted and able to use lighted currette with otoscope to remove with TM visible and intact with noted scarring. Left ear: large quantity of dark yellow cerumen greatest at 2 to 5 oclock able to remove with lighted currette and otoscope with TM visible, intact w/scarring) Neck: positive: Trachea midline Skin: positive: Dryness Neurologic/Psychiatric: positive: Mood/affect nml, Disoriented to time, Weakness, Flat affect Impression and Recommendations - Palliative Care Impression: This is a alba 80-year-old gentleman who was seen and evaluated today at the request of his primary palliative care ADMINISTRATIVE JUDGE for evaluation of excess cerumen and removal to assist with his overall hearing ability. The patient has a history of chronic hearing loss and wears bilateral hearing aids. Excess cerumen was removed from bilateral ear canals and tolerated procedure well after risks reviewed and in agreement to proceed. Recommendations/Counseling Done: 1. Excess cerumen. Bilateral ear canals. After reviewing risks of cerumen removal with lighted curette and otoscope patient in agreement to proceed. Excess cerumen removed from bilateral ear canals with increased cerumen noted in the left versus the right. Bilateral tympanic membranes intact with noted underlying scarring. Tolerated procedure well. He is quite pleased that his hearing has improved after cerumen removal with re-insertion of his hearing aids. Reviewed with patient to avoid use of Q-tips to clean his ears and should not have anything smaller than his elbow and his ears. Reviewed if begins noting dullness with his hearing to make primary ADMINISTRATIVE JUDGE aware and can reevaluate need for excess cerumen removal. Time Spent: CPT 61185 Contacted patient's daughter, Lindy at [phone] and updated regarding cerumen removal with questions answered and addressed. Disclaimer: The chart note was formulated using voice recognition technology and unfortunately sound alike errors may occur.
== END 2020-05-20 11:16 | disposition home or self-care (01) ==
LOC: PC 11:15
PROVIDERS: ATTEND Nurse Practitioner Family
DX: Z51.5 Encounter for palliative care (principal); H61.23 Impacted cerumen, bilateral; Z79.899 Other long term (current) drug therapy; Z79.82 Long term (current) use of aspirin; Z79.4 Long term (current) use of insulin
CPT/HCPCS: 99347

== ENCOUNTER 2020-06-03 11:00 | Outpatient (CLI) | payer MEDICARE, OTHER ==
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
== END 2020-06-03 11:01 | disposition home or self-care (01) ==
LOC: PC 11:00
PROVIDERS: ATTEND Nurse Practitioner Adult Health
DX: Z51.5 Encounter for palliative care (principal); R13.10 Dysphagia, unspecified; E11.42 Type 2 diabetes mellitus with diabetic polyneuropathy; E11.29 Type 2 diabetes mellitus with other diabetic kidney complication; F41.9 Anxiety disorder, unspecified; R60.0 Localized edema; F03.90 Unspecified dementia, unspecified severity, without behavioral disturbance, psychotic disturbance, mood disturbance, and anxiety; C15.9 Malignant neoplasm of esophagus, unspecified; C78.02 Secondary malignant neoplasm of left lung; C78.01 Secondary malignant neoplasm of right lung; Z79.4 Long term (current) use of insulin; Z79.899 Other long term (current) drug therapy; Z66 Do not resuscitate
CPT/HCPCS: 99350

== ENCOUNTER 2020-07-04 14:15 | Outpatient (CLI) | payer MEDICARE, OTHER ==
--- NOTE | 2020-07-04 16:36 | CONSULTATION NOTE ---
Palliative Care Follow Up - Referral Referring Provider: Dr. 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 He continues on pembrolizumab, with only persistent symptom is fatigue. He recently had a CT scan, of chest and abdomen that reviewed negative for any obvious recurrence of mass esophagus. There was some confusion regarding his multiple bilateral pulmonary nodules, if these are worsening or comparison was not appropriate between 2 scans. Patient continues with intermittent dysphagia, with no mass-effect, most likely is stricture or scar tissue. Recommendations for follow-up for possible gastroesophageal dilatation, with the goal to improve quality of life. Palliative care meeting with patient, , and daughter Lindy to help sort through patient's decision-making process. Patient is quite perseverative regarding he is "riddled with cancer". He reports he received his "immersion therapy" this week anyway, but is worried this is a wasting time. He does understand the seriousness of his illness that he has stage IV, is somewhat distressed with his as she told him he could not do with dignity, and is worrying about end-of-life. Adding to the complexity of situation, is patient does have worsening short-term memory issues, is somewhat anorexic, suspect also a deterrent is that choking. He is a diabetic, is not eating on a regular basis, his has dementia as well. They are doing poorly as far as regular eating and drinking, and despite trying to supervise from a far frequent phone calls and Med[employer] set ups, med compliance continues to be a problem. Past Medical History: CHF diastolic with preserved function, hypertension, hyperlipidemia, CAD, AAA, history of CVA, peripheral neuropathy, type 2 diabetes insulin-dependent, GERD, nocturia, chronic vision loss, chronic sinusitis, chronic hearing loss with hearing aids, 1 working kidney, depression, anxiety, osteoarthritis, chronic back pain, persistent fatigue, original esophageal diagnosis cancer stage II 12/2018. Social History - Living Situation Living arrangement: At home Living Situation: With spouse/s.o. Support System: Patient lives in a fairly large house, with an orchard that he perseverates about taking care of. He does have friends that check on him regularly, he with Parkinson's who has fairly severe dementia and anxiety. They do have a caregiver Marleny who comes twice a week, feels the Mediset's, doing some shopping, as well as cooking. Daughters x3, try and provide intermittent visits, but it is quite complicated in the context of their daily lives as well. They do call frequently, to try and oversee and provide support. It is challenging both because of their parents resistance and lack of caregivers with pandemic, to find a good support plan. They are taking patient and down to [place] for a couple weeks for their appointments. Medications/Allergies - Medications Home Medications: Ambulatory Orders Medication Instructions Recorded Confirmed Furosemide [Lasix] 40 mg PO DAILY 02/28/19 07/04/20 Isosorbide Mononitrate ER [Imdur] 30 mg PO DAILY 02/28/19 07/04/20 Insulin Glargine [Lantus Solostar] 20 units SUBQ QPM 06/12/19 07/04/20 Metoprolol Tartrate 25 mg ORAL DAILY 06/12/19 07/04/20 Ondansetron HCl [Zofran] 8 mg PO Q8HR PRN 04/09/20 07/04/20 Aspirin [Children's Aspirin] 81 mg PO DAILY 04/25/20 07/04/20 LORazepam [Ativan] 1 mg PO DAILY PRN 04/25/20 07/04/20 Sertraline [Zoloft] 25 mg PO DAILY MDD 25 mg + 50 mg 04/25/20 07/04/20 polyethylene glycoL 3350 [Miralax] 17 gm PO DAILY PRN 04/25/20 07/04/20 Pantoprazole [Protonix] 40 mg PO DAILY 06/20/20 07/04/20 - Allergies Allergies/Adverse Reactions: Allergies Allergy/AdvReac Type Severity Reaction Status Date / Time No Known Drug Allergies Allergy Verified 07/02/20 12:57 Review of Systems - Constitutional Constitutional: reports: Fatigue, Weakness, Poor appetite, Weight loss (205 (down 7 pounds from May visit)). denies: Fever, Chills - Eyes Eyes: reports: Vision loss - Ears, Nose & Throat Ears, Nose & Throat: reports: Hearing loss, Hearing aids, Other (intermittent choking) - Cardiovascular Cardiovascular: reports: Lightheadedness, Decr. exercise tolerance. denies: Chest pain - Respiratory Respiratory: denies: Cough, SOB at rest - Gastrointestinal Gastrointestinal: reports: Poor appetite, Early satiety, Other (forgets to eat). denies: Reflux/heartburn (started on pantoprazole) - Genitourinary Genitourinary: reports: Frequency, Other (stopped his alfuzosin because of size of pill; does not want to try different med at this time; will revisit after testing) - Musculoskeletal Musculoskeletal: reports: Stiffness, Muscle weakness, Assistive devices (uses cane), Other (very sedentary; most comfortable in his recliner) - Integumentary Integumentary: reports: Dryness - Neurological Neurological: reports: General weakness, Dizziness, Memory problems (worsening) - Psychiatric Psychiatric: reports: Anxiety (worsening) - Endocrine Endocrine: reports: Diabetes type 2 (bs at visit 151; taking Lantus 20 units only in evening; too hard and forgets BID, no correction dosing done) - Hematologic/Lymphatic Hematologic/Lymphatic: denies: Recurrent infections - All Other Systems All Other Systems: reports: Other (limited ROS related to memory issues) Physical Exam - Vital Signs Temperature: 96.4 C Pulse Rate: 48 Respiratory Rate: 18 O2 Saturation: 97 (ra @ rest) Blood Pressure: 122/64 - Physical Exam General Appearance: positive: No acute distress, Alert, Anxious Eyes Bilateral: positive: Normal inspection ENT: positive: Other (mask on) Neck: positive: Trachea midline Cardiovascular: positive: Regular rate & rhythm Respiratory: positive: No respiratory distress, Breath sounds nml Abdomen: positive: Soft, Nml bowel sounds, Obese Skin: positive: Dryness Extremities: positive: No pedal edema Neurologic/Psychiatric: positive: Mood/affect nml, Disoriented to time, Weakness, Flat affect Palliative Care - POLST Patient has POLST: Yes POLST Status: DNR, Selective Treatment Pain: Pain improved, Location (back) Tiredness/Fatigue: Moderate (4-6) Drowsiness/Sedation: Mild (1-3) Nausea: None Anorexia: Severe (7-10), Weight loss Dyspnea: Mild (1-3) Depression: Moderate (4-6) Anxiety: Severe (7-10) (continues to perseverate see PC conversation) Feelings of wellbeing/Perceived Quality of Life: Fair, Worsening Sleep: Variable sleep pattern (impacted by 's confusion/awakenings) Constipation: Intermittent constipation Performance Status: Patient is quite sedentary, does walk short distances around the house with a cane. Does spend most the time in the recliner. Can walk down to the mail box, but is limited. Has had a fall, and is extra cautious.I would put patients PPS at 60% - Palliative Care Discussion: Reviewed with patient, patient's , and daughter what patient remembers from visit. He first presented with his concerns regarding "he is riddled with [facility] er", but we did discuss in the context of this that his scans showed at this point that his swallowing problems is not from his cancer getting worse, but we would need more information to be able to make this decision. He does understand there is also a request to do a PET scan, giving information to see whether treatment is working or not so he can continue to decide whether he wants to continue with treatment or not. He is amendable to this. We then discussed at length a appointment with his GI, for possible esophageal dilatation. It does very much impact his quality of life, they are there by themselves if he were to have a choking episode and not recover that would be pretty significant, we discussed even if he chooses not to continue with treatment this would still be an important step to take. He is in agreement to move forward with this as well. Counseling provided again regarding immunotherapy, hoping for the best, it is her new "miracle drug", and patients to get good response. It is important given his concerns for continuing treatment that would be "wasting his time" that we have information to help make that decision. Related to patient's perseverating around end-of-life, his tried to reiterate that it was not DWD, that she was so worried about but not being included in this decision making. Family feels he may be rushing things or wanting this "over with" because he sees himself as a burden. This would mean though the would need to move in with daughter in [place], and she very much wants to stay at home as long as possible. Though this is definitely becoming more challenging to manage them without increased help in the home. Counseling provided regarding the goal of hospice, would not to let patient suffer, even if he did not do DWD, we would make sure it was a peaceful , this seemed to ameliorate some of his distress. Results - Lab Results Lab results reviewed: Yes Impression and Recommendations - Palliative Care Impression: This is a alba 80-year-old gentleman who has metastatic recurrent esophageal cancer with mets to lung. He is receiving pembrolizumab for palliation, is needing further evaluation to determine effectiveness. Patient is having increasing this dysphagia, persistent fatigue, and some weight loss. Patient's continued anxiety continues to interfere with his quality of life, as well as his short-term memory issues impact his safety and coping. Palliative care con tinue provide support regarding symptom management and anticipatory guidance. Recommendations/Counseling Done: 1. Weight loss. This is multifactorial, including anorexia, dysphagia, Cognitive decline and ability to follow through on meal prep, as well as fatigue. Counseling encouragement provided regarding regular eating and drinking, reviewed did not think patient and can initiate meal prep given their current limitations, would look at further support for meal preparation and or ease of access. They will be with family for 2 weeks, can see if this improves overall. 2. Dysphagia. Not present with any mass-effect or inflammation, most likely will not benefit from Carafate. Does appear to be more spasms, stricture-like symptoms. Patient did agree and follow-up with GI for evaluation. Patient is aware of aspiration precautions, is able to tell me [id number] what he is doing, but suspect this is a barrier from him from eating as it is uncomfortable to spit/choke it back up. 3. Diabetes type 2. Blood sugars remain in a fairly consistent range, they are letting patient eat for pleasure, but it continues to be complicated regarding meals and caregiving. Patient does graze most of the day, at this point in time is on Lantus 20 units at bedtime, no significant lows. This is more of the safety issue. Given the complexity of the social situation suspect not going to get better control. 4. Anxiety. Patient continues to have different topics he perseverates on, we did revisit some of these today. He barney quite complicated given limitations of patient's memory, unclear if sertraline was of help or not it continues to escalate, we have started a titration down to see if it was part of adding to his forgetfulness. His forgetfulness is not improved, nor has his anxiety, at this point he continues to escalate may or may not have been effective, but looking to decrease pill burden will continue to titrate off. 5. Medication adherence. Patient continues to be challenged by his memory and anxiety regarding this. They continue to try and simplify regimen, patient does miss doses at this point in time has not been significant sequela. 6. Advanced care planning. Patient does have POLST with DNA R and selective treatments, patient most likely is having a positive response to treatment, is willing to take the next step as far as information may need to make a further decision. Patient has expressed he does not want to waste this time, if is not working. Counseling provided again regarding end-of-life care, transition to hospice, hoping for the best in the context of his immunotherapy response, also reviewed with daughter, even if quits treatment, he has had several rounds and often does have a sustained response. Time Spent: 60 minutes with greater than 50% of this done in counseling regarding disease education, review of medical appointment, and listing goals of care, patient is going to follow through on appointments. Anticipatory guidance given and coordination of care.
== END 2020-07-04 14:16 | disposition home or self-care (01) ==
LOC: PC 14:15
PROVIDERS: ATTEND Nurse Practitioner Adult Health
DX: Z51.5 Encounter for palliative care (principal); R63.4 Abnormal weight loss; R13.10 Dysphagia, unspecified; E11.42 Type 2 diabetes mellitus with diabetic polyneuropathy; E11.29 Type 2 diabetes mellitus with other diabetic kidney complication; F41.9 Anxiety disorder, unspecified; R41.3 Other amnesia; I50.9 Heart failure, unspecified; I11.0 Hypertensive heart disease with heart failure; C15.5 Malignant neoplasm of lower third of esophagus; C78.00 Secondary malignant neoplasm of unspecified lung; Z66 Do not resuscitate; Z79.4 Long term (current) use of insulin
CPT/HCPCS: 99350

== ENCOUNTER 2020-08-08 15:00 | Outpatient (CLI) | payer MEDICARE, OTHER ==
--- NOTE | 2020-08-09 16:10 | CONSULTATION NOTE ---
Palliative Care Follow Up - Referral Referring Provider: Dr. 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 He has been on pembrolizumab, with only symptom has been persistent fatigue. He had had a CT scan of chest and abdomen that did not show any obvious recurrence of his esophageal mass, but given the concern regarding whether to continue with treatment, a follow up PET SCAN was scheduled for comparison as well as an esophageal dilatiation. The PET scan is not available to me, my understanding from daughter Lindy is that in discussion with Dr. St, it did show progression of the pulmonary mets, as well as some residual esophageal cancer at original site but no mass. Patient has benefited from dilatation, there was no obvious mass effect at the t gordon of procedure, is no longer having as serious of choking episodes, and is able to eat better. Dr. St had made a referral to hospice with recommendation not to continue the pembrolizumab, but him conversation with the family, and patient's high anxiety, decision is made to continue on palliative care. Patient is very perseverative, on dying, and brought up again " with dignity" but his that his would not agree with that and he is worried about "suffering" and being a burden. This was quickly brought up and not revisited during the visit. Nor did we bring up hospice referral, but focus on the bad news was that the treatment was not working, the good news was though the treatment was not working, there was not significant amount of growth. Refocus on what we were going to do, which is to follow him every 2 weeks, and make a plan if things changed. Currently his quality of life is fairly good, but caregiving situation is continuing to dear deteriorate with both he and his 's cognitive decline, and difficulty with medication adherence and food preparation. Past Medical History: CHF diastolic with preserved function, hypertension, hyperlipidemia, CAD AAA, history of CVA, peripheral neuropathy, type 2 diabetes insulin-dependent moderately controlled, GERD, nocturia, currently not on treatment, chronic vision loss, chronic sinusitis, chronic hearing loss with hearing aids, 1 working kidney, depression, anxiety, osteoarthritis, chronic back pain, persistent fatigue, original esophageal diagnosis stage II 12/2018. Social History - Living Situation Living arrangement: At home Living Situation: With spouse/s.o. Support System: Patient lives in a fairly large home house, with an orchard that he perseverates about taking care of. He does have friends that check on him regularly, his with Parkinson's was recently hospitalized in his moderate to severe dementia and worsening that he do need significant amount more help, have been very resistant, get very anxious with any kind of change. They do have a caregiver Marleny who comes twice a week, daughter is trying to provide intermittent visits as well as frequent phone calls, but it is getting more complicated in the context of their daily lives both for the daughters and for the parents. They had originally planned to have them in assisted living, given the pandemic they would have very little access to them, they are trying to take care of them in their own home, but are hitting multiple barriers. They are trying to hire more caregiving support, but is challenged again with lack of resources during pandemic. Medications/Allergies - Medications Home Medications: Ambulatory Orders Medication Instructions Recorded Confirmed Furosemide [Lasix] 40 mg PO DAILY 02/28/19 08/10/20 Isosorbide Mononitrate ER [Imdur] 30 mg PO DAILY 02/28/19 08/10/20 Insulin Glargine [Lantus Solostar] 20 units SUBQ QPM 06/12/19 08/10/20 Metoprolol Tartrate 25 mg ORAL BID 06/12/19 08/10/20 ondansetron HCL [Zofran] 8 mg PO Q8HR PRN 04/09/20 08/10/20 Aspirin [Children's Aspirin] 81 mg PO DAILY 04/25/20 08/10/20 polyethylene glycoL 3350 [Miralax] 17 gm PO DAILY PRN 04/25/20 08/10/20 Pantoprazole [Protonix] 40 mg PO DAILY 06/20/20 08/10/20 - Allergies Allergies/Adverse Reactions: Allergies Allergy/AdvReac Type Severity Reaction Status Date / Time No Known Drug Allergies Allergy Verified 07/02/20 12:57 Review of Systems - Constitutional Constitutional: reports: Fatigue, Weakness, Poor appetite (improved with dilatation; but doesn't eat with regards to meal prep or follow through), Weight loss (205 (down 7 pounds from Sept visit)). denies: Fever, Chills - Eyes Eyes: reports: Vision loss - Ears, Nose & Throat Ears, Nose & Throat: reports: Hearing loss, Hearing aids, Other (intermittent choking but much improved) - Cardiovascular Cardiovascular: reports: Chest pain (reports one episode yesterday; points to sternal area; relieved with rest), Decr. exercise tolerance - Respiratory Respiratory: denies: SOB at rest - Gastrointestinal Gastrointestinal: reports: Poor appetite, Early satiety, Other (forgets to eat). denies: Constipation, Reflux/heartburn (started on pantoprazole) - Genitourinary Genitourinary: reports: Frequency - Musculoskeletal Musculoskeletal: reports: Stiffness, Muscle weakness, Assistive devices (uses cane), Other (very sedentary; most comfortable in his recliner; Patient had a fall and hit his left ear the other day, they have rearranged the furniture.) - Integumentary Integumentary: reports: Dryness - Neurological Neurological: reports: General weakness, Dizziness, Memory problems (worsening) - Psychiatric Psychiatric: reports: Anxiety (worsening) - Endocrine Endocrine: reports: Diabetes type 2 (Taking lantus only 20 at bedtime to keep simple; in review of sugars 100-140 8% of time; 141-240 71 % of time; greater than 240 19% of time) - All Other Systems All Other Systems: reports: Other (limited ROS related to memory issues) Physical Exam - Vital Signs Temperature: 96.4 C Pulse Rate: 52 Respiratory Rate: 18 O2 Saturation: 96 (ra @ rest) Blood Pressure: 102/64 - Physical Exam General Appearance: positive: No acute distress, Alert, Anxious Eyes Bilateral: positive: Normal inspection ENT: positive: Other (small abrasion from hearing aid in left ear from fall) Neck: positive: Trachea midline Cardiovascular: positive: Regular rate & rhythm, Bradycardia Respiratory: positive: No respiratory distress, Breath sounds nml Abdomen: positive: Soft, Nml bowel sounds, Obese Skin: positive: Dryness Extremities: positive: No pedal edema Neurologic/Psychiatric: positive: Mood/affect nml, Disoriented to time, Weakness, Flat affect Palliative Care - POLST Patient has POLST: Yes POLST Status: DNR, Selective Treatment Pain: Pain unchanged, Location (chronic low back pain; recovered from tail bone pain of fall) Tiredness/Fatigue: Moderate (4-6) Drowsiness/Sedation: Moderate (4-6) Nausea: None Anorexia: Moderate (4-6) Dyspnea: Mild (1-3) Depression: Moderate (4-6) Anxiety: Severe (7-10) Feelings of wellbeing/Perceived Quality of Life: Fair, Acceptable, Worsening Sleep: Variable sleep pattern (up at night to void) Constipation: Comment (unable to evaluate as can't remember; does not feel it is a problem) Performance Status: Patient and are both challenged for any kind of meal prep, even for just warming things up in the microwave. Daughter is to make arrangements and provide food, Marleny cooks, but just sequencing and preparing food becomes challenging. They are hoping to find some support to be able to help him with this, the parents remain quite resistant to any kind of assistance. Patient currently is still able to bathe independently, is managing his own insulin, though concerned sometimes he is not taking it.He also provides support for his who has Parkinson's, this can often cause problems between the 2 of them as well. - Palliative Care Discussion: Family meeting with Lyudmila daughter present, Keiko on the line. Met with patient and , discussed findings regarding the immunotherapy is not doing what we had wanted to, he had responded as "that is disappointing". Discussed the good news of of there was not a large amount of cancer, and should be doing fairly well for at least short-term, discussed the bad news is the treatment was not working, so does not make sense to continue at this point in time. Left it open for things are concerned about, patient continues to perseverate on pills, walking outside with his pain, did not revisit any further conversation about DWD except at the very beginning which he did not bring up again. Left it open for several doors to have further conversation, patient seemed content though unclear his understanding of the conversation we had had. It had gone the way the daughters wanted to, though Lyudmila did come in on the way out will probably revisit it multiple times for sure given their underlying confusion. My observation is both patient and , continue to have more difficulty needing care needs at home, and getting more complicated regarding medication management and food prep/eating. They may need an alternative plan if cannot find appropriate support for home management. Impression and Recommendations - Palliative Care Impression: This is a alba 80-year-old gentleman who has metastatic recurrent esophageal cancer with mets to the lung. He is now no longer receiving pembrolizumab for palliation as he did have progression on treatment. Patient received a esophageal dilatation with improvement of symptoms of choking, and swallowing. Patient's continued anxiety continues to interfere with his quality of life, as well as his short-term memory issues impact his safety and coping. Patient and needing better home support given their worsening cognitive status. Palliative care continue to provide support regarding symptom management and anticipatory guidance, transition to hospice when symptom burden progresses. Recommendations/Counseling Done: 1. Weight loss. This is multifactorial, including anorexia, he has had some improvement with dysphagia, but now is having increased difficulty with being able to follow through on meal prep, needs further support in the home. Family is looking for increased support, may need more aggressive plan, though patient does get anxious with any kinds of changes, and new people in the home. 2. Dysphagia. Patient was having spasms and stricture-like symptoms, these have improved, though it is still high risk as far as choking, he is doing much better. He is trying to follow aspiration precautions, he did have an episode of chest discomfort, unclear if this is cardiac or may need to restart Carafate. Patient dislikes Carafate, will continue to monitor, as compliance will be an issue. 3. Diabetes type 2. Blood sugars remain in a fairly consistent range, slightly on the higher end, they are letting patient eat for pleasure, but does continue to be complicated regarding meals and caregiving. Patient does tend to graze most of the time, he is in his average range 1 41-2 40 71% of the time, given he is doing his own Lantus 20 minutes at bedtime and already is easily confused, though could be adjusted, feel burden over benefit regarding his confusion, will leave at current dosing. 4. Balance issues. This is multifactorial, patient with peripheral neuropathy, also with impulsivity and often forgets his cane. Patient had a fall at the bedside, they have rearranged furniture to make this easier. Patient is quite adamant does not want home physical therapy, though most likely would have benefited. They are looking at pursuing this for his , he may change his mind and according to this. 5. Medication adherence patient continues to be challenged by his memory and anxiety regarding this, we have simplified his regimen as best we can on and taking away as many medications as reasonable given his underlying comorbidities. Both he and his could use better supervision regarding this. 6. Cerumen. Patient would benefit from another round of cleaning, patient ear examined related to c/o bleeding with hearing aid. Has small open area, appears most likely from trauma of fall, no dried blood or evidence of further bleeding. Will have cleaned next appointment when have proper flushing equipment. 7. Advanced care planning. Patient does have POLST with DNA R and selective treatments, patient may have an extended period of time without high symptom burden related to his cancer. Given patient's severe anxiety, discussion with daughters will continue to monitor closely every other week and weekly if needed, and transition to hospice when symptom burden is more acute. Patient also needs more robust caregiving plan, to transition to hospice for end-of-life care. Time Spent: 60 minutes with greater than 50% of this done in counseling regarding family conference for goals of care. Patient with continued very little insight, very high anxiety, will continue to monitor for transition to hospice, order is available. Will increase palliative care visits to every 2 weeks for monitoring.
== END 2020-08-08 15:01 | disposition home or self-care (01) ==
LOC: PC 15:00
PROVIDERS: ATTEND Nurse Practitioner Adult Health
DX: Z51.5 Encounter for palliative care (principal); R13.10 Dysphagia, unspecified; R63.4 Abnormal weight loss; R63.0 Anorexia; R53.1 Weakness; E11.42 Type 2 diabetes mellitus with diabetic polyneuropathy; F03.90 Unspecified dementia, unspecified severity, without behavioral disturbance, psychotic disturbance, mood disturbance, and anxiety; H61.20 Impacted cerumen, unspecified ear; R07.9 Chest pain, unspecified; G89.29 Other chronic pain; C15.5 Malignant neoplasm of lower third of esophagus; C78.00 Secondary malignant neoplasm of unspecified lung; Z79.899 Other long term (current) drug therapy; Z79.4 Long term (current) use of insulin; Z74.1 Need for assistance with personal care; Z63.6 Dependent relative needing care at home; Z91.81 History of falling; Z66 Do not resuscitate
CPT/HCPCS: 99350

== ENCOUNTER 2020-08-19 16:00 | Outpatient (CLI) | payer MEDICARE, OTHER ==
--- NOTE | 2020-08-19 17:56 | CONSULTATION NOTE ---
Palliative Care Follow Up - Referral Referring Provider: Dr. 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 The patient is seen today with his daughter, Lindy and , Criss. The patient Has a history of dysphagia in the past and responded well to esophageal dilation. He is noticing increased difficulty with swallowing his pills first thing in the morning and has begun in the last 3 days administering Carafate first thing in the morning. He reports this provides ease of administration. He does not have any difficulty swallowing his meals throughout the day. His daughter states that his diet consists of "cookies and cheese." He has had some weight loss and presently weighs 192 pounds noted on the home scale. He denies his close fitting more loosely on him. In discussing his history of esophageal dilation he is quick to ask if this HOUSEKEEPING SUPER[employer] is aware that he has "stage IV esophageal cancer." He has a history of chronic hearing loss and wears hearing aids. He was fitted for new hearing aids earlier this year it is connected to application on his phone to measure his battery level. He is typically changing the battery of his hearing aids on a daily basis. The patient and his daughter reports that he has not followed up with his primary electrical systems drafter regarding the frequency of changing his batteries. His ears were last evaluated and excess cerumen cerumen removed 01/2020. Prior to that time he does not recall having an ear cleaning in the past. Of note, the patient does report having a "dizzy spell" over the weekend where he had difficulty getting up from a sitting position. He has not had the symptoms recur and presently denies blurred vision, dizziness, lightheadedness, or tinnitus. He tends more on the side of constipation. 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 The patient is seen at the dining room table in the kitchen, no evidence of acute distress is comfortable well fitting clothes. Past Medical History: Patient has a past medical history of CHF diastolic with preserved function, hypertension, hyperlipidemia, CAD, AAA, history of CVA, peripheral neuropathy, type 2 diabetes insulin-dependent moderately controlled, GERD, nocturia, chronic vision loss, chronic sinusitis, chronic hearing loss with hearing aids, one working kidney, depression, anxiety, osteoarthritis, chronic back pain, persistent fatigue, original esophageal diagnosis stage II 12/2018. Social History - Living Situation Living arrangement: At home Living Situation: With spouse/s.o. Support System: The patient lives alone with his , Criss. They have a caregiver, Marleny comes twice a week. Their daughter, Lindy provides intermittent visits as well as frequent phone calls. The patient's daughter reports that they are interviewing for additional caregiving support within the home. Medications/Allergies - Medications Home Medications: Ambulatory Orders Medication Instructions Recorded Confirmed Furosemide [Lasix] 40 mg PO DAILY 02/28/19 08/10/20 Isosorbide Mononitrate ER [Imdur] 30 mg PO DAILY 02/28/19 08/10/20 Insulin Glargine [Lantus Solostar] 20 units SUBQ QPM 06/12/19 08/10/20 Metoprolol Tartrate 25 mg ORAL BID 06/12/19 08/10/20 ondansetron HCL [Zofran] 8 mg PO Q8HR PRN 04/09/20 08/10/20 Aspirin [Children's Aspirin] 81 mg PO DAILY 04/25/20 08/10/20 polyethylene glycoL 3350 [Miralax] 17 gm PO DAILY PRN 04/25/20 08/10/20 Pantoprazole [Protonix] 40 mg PO DAILY 06/20/20 08/10/20 Sucralfate [Carafate] 08/19/20 - Allergies Allergies/Adverse Reactions: Allergies Allergy/AdvReac Type Severity Reaction Status Date / Time No Known Drug Allergies Allergy Verified 08/19/20 18:00 Review of Systems - Constitutional Constitutional: reports: Fatigue, Poor appetite (diet of cookies and cheese per daughter and unable to follow through on warming up food that has been previously prepared), Weight loss (192lb). denies: Fever - Eyes Eyes: reports: Vision loss - Ears, Nose & Throat Ears, Nose & Throat: reports: Hearing loss, Hearing aids, Other (dysphagia with pills that has improved with carafate use first thing in AM) - Cardiovascular Cardiovascular: denies: Chest pain - Respiratory Respiratory: denies: Wheezing - Gastrointestinal Gastrointestinal: reports: Constipation, Poor appetite, Other (forgets to eat) - Genitourinary Genitourinary: reports: Frequency - Musculoskeletal Musculoskeletal: reports: Assistive devices (uses cane) - Integumentary Integumentary: reports: Dryness - Neurological Neurological: reports: General weakness, Memory problems - Psychiatric Psychiatric: reports: Anxiety - Endocrine Endocrine: reports: Diabetes type 2 - All Other Systems All Other Systems: reports: Reviewed and negative (ROS limited as patient is a poor historian due to cognitive impairment and ROS supplemented by daughter, Lindy) Physical Exam - Vital Signs Temperature: 36.7 C Pulse Rate: 63 O2 Saturation: 98 (on RA at rest) Blood Pressure: 126/68 (left wrist cuff) - Physical Exam General Appearance: positive: No acute distress, Alert Eyes Bilateral: positive: Normal inspection, PERRL, Other (No nystagmus noted on assessment) ENT: positive: No signs of dehydration, Other (Right ear: no cerumen noted with otoscope and TM visible with noted scarring and inact; Left ear: no cerumen noted with otoscope and TM visible, intact with scarring noted. +Hearing aids) Neck: positive: Trachea midline Cardiovascular: positive: Regular rate & rhythm, No murmur Respiratory: positive: No respiratory distress, Breath sounds nml Abdomen: positive: Soft, Nml bowel sounds, Other (+round) Skin: positive: Dryness (dry, scattered flaky skin) Extremities: positive: No pedal edema Neurologic/Psychiatric: positive: Mood/affect nml, Disoriented to time, Weakness, Flat affect Palliative Care - POLST Patient has POLST: Yes POLST Status: DNR, Selective Treatment - Palliative Care Discussion: The patient presents as individual with linear thinking. He and his demonstrate increased caregiving needs within the home and more specifically around medication management as well as food preparation as neither of them are able to reinitiate their food. The patient and his are not keen on change. This was evident suggesting that they tried meals on wheels for additional services. 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 He has had some recent difficulty with swallowing surrounding his medications and this is responded well in the last 3 days to administration of Carafate first thing in the morning. The patient previously was adverse to Carafate and thus far has tolerated administration. Impression and Recommendations - Palliative Care Impression: This is an 80-year-old gentleman with metastatic recurrent esophageal cancer with mets to the lung. Patient with recent with taking oral medications and is status post esophageal dilation. He has resumed Carafate with improvement of his ability to swallow his medications. The patient is significantly hard of hearing and no evidence of cerumen to be removed on evaluation today. The patient's and his due to their cognitive status is requiring more oversight within the home and the family is interviewing caregivers to provide additional support. Palliative care to continue provide support regarding symptom management and anticipatory guidance. Recommendations/Counseling Done: 1. Chronic hearing loss. Patient wears hearing aids. No evidence of cerumen in bilateral ear canals with both TMs intact and visible. Has the patient is frequently having to change his batteries on a daily basis for use hearing aids recommended to the patient and his daughter to follow-up with audiology to determine if any adjustments can be made. 2. Dysphagia. Patient is status post endoscopy with dilation in the past. He does express a fear of choking. He has had a benefit since allowing reintroduction of Carafate in the morning. Continue Carafate first thing if symptoms persist may need follow-up with GI for reevaluation. 3. Xerosis. Generalized. Strongly encouraged the patient agreed to Cetaphil lotion application on at least a once daily basis for moisturization. 4. Constipation. Longstanding history. Likely multifactorial due to patient's sedentary lifestyle and poorly balanced diet. Also due to his food choices that are in the constipating and. He does find positive response from use of MiraLAX but requires coaching from his daughter over the phone for administration. Recommended use of 1-2 prunes nightly for 4 ounces of warm prune juice nightly for constipation prevention. Reviewed to not take too many prunes at once as this may lead to bloating and flatus. 5. Advance care planning. Patient has a POLST with DN AR with selective treatments. Patient and his spouse would benefit from additional caregiving resources for care and monitoring within the home however, it has been difficult for the family to obtain additional care[place]. The patient has underlying cognitive impairment which makes medication adherence difficult and she is often not open to suggestions of change. Patient and his were not open to addition of Meals on Wheels. The patient's family are presently interviewing and the patient and his continue with her long-term and home health, Marleny who comes 2 days a week. Time Spent: F/u with primary HOUSEKEEPING [employer]PER[employer]EL as scheduled. Total time spent 30 minutes with greater than 50% of this spent in counseling and coordination of care with patient, daughter Lindy and , Criss; examination of patient; supportive listening; review of symptom management and anticipatory guidance. Disclaimer: The chart note was formulated using voice recognition technology and unfortunately sound alike errors may occur.
== END 2020-08-19 16:01 | disposition home or self-care (01) ==
LOC: PC 16:00
PROVIDERS: ATTEND Nurse Practitioner Family
DX: Z51.5 Encounter for palliative care (principal); H91.90 Unspecified hearing loss, unspecified ear; R13.10 Dysphagia, unspecified; L85.3 Xerosis cutis; K59.00 Constipation, unspecified; C15.9 Malignant neoplasm of esophagus, unspecified; C78.00 Secondary malignant neoplasm of unspecified lung; I11.0 Hypertensive heart disease with heart failure; I50.9 Heart failure, unspecified; E11.42 Type 2 diabetes mellitus with diabetic polyneuropathy; Z79.4 Long term (current) use of insulin; Z66 Do not resuscitate
CPT/HCPCS: 99349

== ENCOUNTER 2020-08-24 11:13 | Observation (INO) | payer MEDICARE, OTHER ==
[2020-08-24] MEDS ORDERED: GLUCAGON 5 MG in DEXTROSE 5% 45 ML IV STA (12:23)
[2020-08-24] MEDS ORDERED: NITROGLYCERIN SL 0.4 MG TABLET SL STA (12:23)
[2020-08-24] MEDS ORDERED: GLUCAGON IV STA (12:26)
[2020-08-24] MEDS ORDERED: DEXTROSE 5% IV STA (12:26)
--- NOTE | 2020-08-24 13:41 | ED Physician Documentation ---
History of Present Illness - Stated complaint Stated Complaint: CANT SWALLOW/VOMITING - Chief complaint Chief Complaint: General - History obtained from History obtained from: Patient, Friend - Additonal information Additional information: Pt comes to the ED c/o regurgitating any liquid he tries to drink since yesterday. The pt has a h/o esophageal cancer, treated with radiation and chemo, with subsequent esophageal stricture. He had a balloon dilation just over a month ago for this. Pt states he has been doing fine, though he has to be careful with eating, and got through Thanksgiving dinner okay. However, yesterday, he noticed that anytime he tried to drink water, it just came back up. Pt denies CP, but states he feels as though the water not going down is a mental problem. He does not remember feeling as though food got stuck prior to onset of these symptoms. Pt states he has not tried to eat since onset, since he is having trouble with liquids. He does deny difficulty breathing. He states he feels dehydrated. Review of Systems Ten Systems: 10 systems reviewed and negative Constitutional: reports: Reviewed and negative Eyes: reports: Reviewed and negative Ears: reports: Reviewed and negative Nose: reports: Reviewed and negative Throat: reports: Reviewed and negative Cardiac: reports: Reviewed and negative. denies: Chest pain / pressure Respiratory: reports: Reviewed and negative. denies: Dyspnea, Cough GI: reports: Vomiting (regurgitating) : reports: Reviewed and negative Skin: reports: Reviewed and negative Musculoskeletal: reports: Reviewed and negative Neurologic: reports: Reviewed and negative Psychiatric: reports: Reviewed and negative Endocrine: reports: Reviewed and negative Immunocompromised: reports: Reviewed and negative PD PAST MEDICAL HISTORY - Past Medical History Cardiovascular: Congestive heart failure, Hypertension, High cholesterol, Coronary artery disease, Other Respiratory: None Neuro: CVA, Peripheral neuropathy Endocrine/Autoimmune: Type 2 diabetes GI: GERD, Other CUSTOMER SERVICE TELLER: None : Nocturia, Other HEENT: Chronic vision loss, Chronic sinusitis, Chronic hearing loss Psych: Depression, Anxiety Musculoskeletal: Osteoarthritis, Fatigue, Chronic back pain Derm: None - Past Surgical History Ortho: Knee replacement Cardiovascular: CABG - Present Medications Home Medications: Ambulatory Orders Medication Instructions Recorded Confirmed Furosemide [Lasix] 40 mg PO DAILY 02/28/19 08/25/20 Isosorbide Mononitrate ER [Imdur] 30 mg PO DAILY 02/28/19 08/25/20 Insulin Glargine [Lantus Solostar] 20 units SUBQ QPM 06/12/19 08/25/20 Metoprolol Tartrate 25 mg ORAL BID 06/12/19 08/25/20 ondansetron HCL [Zofran] 8 mg PO Q8HR PRN 04/09/20 08/25/20 Aspirin [Children's Aspirin] 81 mg PO DAILY 04/25/20 08/25/20 polyethylene glycoL 3350 [Miralax] 17 gm PO DAILY PRN 04/25/20 08/25/20 Pantoprazole [Protonix] 40 mg PO DAILY 06/20/20 08/25/20 Alfuzosin HCl [Uroxatral] 10 mg PO DAILY 08/25/20 08/25/20 Rosuvastatin Calcium [Crestor] 10 mg PO QPM 08/25/20 08/25/20 Sertraline [Zoloft] 75 mg PO DAILY 08/25/20 08/25/20 Sucralfate [Carafate] 10 ml PO TID 08/25/20 08/25/20 - Allergies Allergies/Adverse Reactions: Allergies Allergy/AdvReac Type Severity Reaction Status Date / Time No Known Drug Allergies Allergy Verified 08/24/20 11:29 - Social History Does the pt smoke?: No Smoking Status: Never smoker - POLST Patient has POLST: Yes POLST Status: Full Code PD ED PE NORMAL - Vitals Vital signs reviewed: Yes - General General: Alert and oriented X 3, No acute distress, Well developed/nourished - HEENT HEENT: Atraumatic, PERRL, EOMI, Moist mucous membranes, Pharynx benign, Other (No drooling; handling secretions well. No excess secretions noted.) - Neck Neck: Supple, no meningeal sign, No adenopathy, Other (No fullness or mass.) - Cardiac Cardiac: RRR, No murmur, Strong equal pulses - Respiratory Respiratory: No respiratory distress, Clear bilaterally - Abdomen Abdomen: Normal bowel sounds, Soft, Non tender, Non distended - Derm Derm: Normal color, Warm and dry, No rash - Extremities Extremities: No deformity, No edema, No calf tenderness / cord - Neuro Neuro: offset press assistant 2-12 intact, No motor deficit, No sensory deficit, Normal speech, Other (Pt is alert and answers questions readily, but sometimes seems confused.) - Psych Psych: Normal mood, Normal affect Results - Vitals Vitals: Oxygen O2 Source Room air - Labs Labs: Laboratory Tests 08/24/20 08/24/20 12:30 12:30 WBC 7.9 RBC 5.03 Hgb 13.8 L Hct 43.8 MCV 87.1 MCH 27.4 MCHC 31.5 L RDW 14.6 Plt Count 247 MPV 10.4 Neut # (Auto) 6.9 H Lymph # (Auto) 0.4 L [place] # (Auto) 0.5 Eos # (Auto) 0.0 Baso # (Auto) 0.0 Absolute Nucleated RBC 0.00 Nucleated RBC % 0.0 Sodium 144 Potassium 3.3 L Chloride 102 Carbon Dioxide 27 Anion Gap 15.0 H BUN 25 H Creatinine 1.4 H Estimated GFR (MDRD) 49 L Glucose 296 H Calcium 9.7 Total Bilirubin 0.8 AST 24 ALT 20 Alkaline Phosphatase 90 Total Protein 7.8 Albumin 4.0 Globulin 3.8 Albumin/Globulin Ratio 1.1 Lipase 25 - Rads (name of study) CXR Radiology: Final report received, See rad report (continued presence of known pulmonary metastatic disease. No acute findings.) PD MEDICAL DECISION MAKING - ED course Complexity details: reviewed old records, reviewed results, re-evaluated patient , considered differential, d/w patient, d/w family, d/w insurance consultant ED course: Pt was fairly well-appearing, but I suspected a food impaction in the esophagus, given the history and sx. Pt was started on IV NS bolus, with IV glucagon and SL NTG. Liquid PO challenge was attempted by the pt after this, and failed. I spoke with Dr. Contreras of surgery, who agreed to admit the pt to his service, with plan for endoscopy. Pt and family were agreeable to this plan. Departure - Departure Disposition: ED Transfer to [facility] Clinical Impression: Esophageal obstruction due to food impaction Condition: Serious Discharge Date/Time: 08/24/20 18:42
--- NOTE | 2020-08-24 13:48 | XRAY Report ---
PROCEDURE: Chest 1 View X-Ray INDICATIONS: chest pain TECHNIQUE: One view of the chest was acquired. COMPARISON: Chest CT dated 06/30/2020 FINDINGS: Surgical changes and devices: Right-sided portacatheter with the tip overlying the expected location of the superior cavoatrial junction. Post-CABG changes. Lungs and pleura: Known pulmonary nodules are better depicted on comparison CT. No focal consolidatio n, pneumothorax, or large joint pleural effusion. Linear densities at the lung bases favored to repre sent atelectasis. Mediastinum: Post-CABG changes. Heart size is within normal limits. Basilar calcifications within the aorta. Bones and chest wall: No suspicious bony lesions. Overlying soft tissues appear unremarkable. IMPRESSION: Multiple nodular densities consistent with known metastatic disease better depicted on comparison CT. Mild basilar atelectasis. Reviewed by: Edgardo Phipps DO on 08/24/2020 12:46 PM [place] Approved by: Edgardo Phipps DO on 08/24/2020 12:46 PM [place] Station ID: [id number]
[2020-08-24] MEDS ORDERED: SODIUM CHLORIDE 0.9% 1,000 ML IV STA (17:15)
[2020-08-24 17:29] LABS: BASOPHILS % (AUTO) 0.5 %; EOSINOPHILS % (AUTO) 0.1 %; HGB - HEMOGLOBIN 13.8 g/dL (14.0-18.0); LYMPHOCYTES # (AUTO) 0.4 10^3/uL (1.5-3.5); LYMPHOCYTES % (AUTO) 5.6 %; MEAN CORPUSCULAR HEMOGLOBIN 27.4 pg (27.0-31.0); MEAN CORPUSCULAR HGB CONC 31.5 g/dL (32.0-36.0); MEAN CORPUSCULAR VOLUME 87.1 fL (80.0-94.0); MEAN PLATELET VOLUME 10.4 fL (7.4-11.4); MONOCYTES # (AUTO) 0.5 10^3/uL (0.0-1.0); MONOCYTES % (AUTO) 6.1 %; NEUTROPHILS # (AUTO) 6.9 10^3/uL (1.5-6.6); NEUTROPHILS % (AUTO) 87.3 %; PLT - PLATELET COUNT 247 10^3/uL (130-450); RED BLOOD COUNT 5.03 10^6/uL (4.70-6.10); RED CELL DISTRIBUTION WIDTH 14.6 % (12.0-15.0); WHITE BLOOD COUNT 7.9 x10^3/uL (4.8-10.8)
[2020-08-24 17:39] LABS: ALBUMIN/GLOBULIN RATIO 1.1 (1.0-2.2); BILIRUBIN,TOTAL 0.8 mg/dL (0.2-1.0); CALCIUM 9.7 mg/dL (8.5-10.3); CREATININE 1.4 mg/dL (0.6-1.2); TOTAL PROTEIN 7.8 g/dL (6.7-8.2)
[2020-08-24] MEDS ORDERED: ONDANSETRON 4 MG/2 ML VIAL IVP PRN (17:56)
[2020-08-24] MEDS ORDERED: ACETAMINOPHEN 1,000 MG/100 ML 100 ML IV PRN (17:56)
[2020-08-24] MEDS ORDERED: SODIUM CHLORIDE FLUSH 0.9% 10 ML SYRINGE IVP PRN (17:56)
--- NOTE | 2020-08-24 18:09 | CONSULTATION NOTE ---
Referring Provider Name of Referring Provider:: ER physician Consult Date: 08/24/20 Chief Complaint - Chief Complaint Chief Complaint: Dysphagia/Retained foreign body History of Present Illness - Admitted From Admitted From:: Home - History Obtained From Records Reviewed: Emergency room documentation, electronic medical record, oncology History obtained from: Patient, daughter, Devendra St from oncology Exam Limitations: None - History of Present Illness HPI Comment/Other: 80-year-old male with history of esophageal cancer who had undergone immunotherapy and external beam radiation. He has had multiple episodes of worsening dysphagia and has recently been dilated by interventional gastroenterology with the possible suggestion long- term for necessary endoluminal stenting. There was also mention upon discussion with the daughter that a PEG tube had been mentioned as an option at some point, as we mentioned that these tend not to be used especially in the setting of patient's or surgical candidates, for which both the patient and daughter conceded he was not. He claims that he was eating cookies at the time of and since then has been having issues with increased saliva and spitting and inability to swallow. He has not taken his pills and presents to the ER because of this constellation of symptoms. He has multiple medical core morbidities which are listed under past medical history. 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 Mother: of leukemia- AML. Brother: CLL Living Situation: With spouse/s.o. - Substance History Use: Uses substance without health or social issues: Tobacco - POLST Patient has POLST: Yes POLST Status: Full Code Meds/Allgy - Home Medications Home Medications: Ambulatory Orders Medication Instructions Recorded Confirmed Furosemide [Lasix] 40 mg PO DAILY 02/28/19 08/10/20 Isosorbide Mononitrate ER [Imdur] 30 mg PO DAILY 02/28/19 08/10/20 Insulin Glargine [Lantus Solostar] 20 units SUBQ QPM 06/12/19 08/10/20 Metoprolol Tartrate 25 mg ORAL BID 06/12/19 08/10/20 ondansetron HCL [Zofran] 8 mg PO Q8HR PRN 04/09/20 08/10/20 Aspirin [Children's Aspirin] 81 mg PO DAILY 04/25/20 08/10/20 polyethylene glycoL 3350 [Miralax] 17 gm PO DAILY PRN 04/25/20 08/10/20 Pantoprazole [Protonix] 40 mg PO DAILY 06/20/20 08/10/20 Sucralfate [Carafate] 08/19/20 - Allergies Allergies/Adverse Reactions: Allergies Allergy/AdvReac Type Severity Reaction Status Date / Time No Known Drug Allergies Allergy Verified 08/24/20 11:29 Review of Systems - Constitutional Constitutional: reports: Weakness - Gastrointestinal Gastrointestinal: reports: Nausea, Reflux/heartburn, Other (Dysphagia) Exam - Vital Signs Reviewed Vital Signs: Yes Vital Signs: Vital Signs x48h Temp Pulse Resp BP Pulse Ox 08/24/20 17:00 59 L 17 159/63 H 100 08/24/20 16:30 55 L 16 158/63 H 99 08/24/20 16:00 55 L 16 155/64 H 99 08/24/20 15:30 52 L 16 123/61 97 08/24/20 15:00 61 16 143/65 H 96 08/24/20 14:30 77 18 140/92 H 99 08/24/20 14:00 67 15 152/63 H 99 08/24/20 13:37 92 26 H 157/80 H 100 08/24/20 13:17 69 20 119/71 100 08/24/20 12:46 65 17 124/69 95 08/24/20 12:39 59 L 15 134/62 H 98 08/24/20 11:41 59 L 18 147/67 H 99 08/24/20 11:20 36.9 C 84 18 132/71 H 99 - Physical Exam General Appearance: positive: No acute distress, Alert Eyes Bilateral: positive: Normal inspection, PERRL, EOMI ENT: positive: ENT inspection nml Neck: positive: Nml inspection Respiratory: positive: Chest non-tender, No respiratory distress, Breath sounds nml. negative: Wheezes, Rales, Rhonchi Cardiovascular: positive: Regular rate & rhythm Abdomen: positive: Non-tender, No distention. negative: Tenderness, Guarding, Rebound Skin: positive: Color nml Extremities: positive: Non-tender, Full ROM, Nml appearance Neurologic/Psychiatric: positive: Oriented x3, CN's nml (2-12), Motor nml, Sensation nml, Mood/affect nml Conclusion and Plan - Lab Results Laboratory Results 08/24/20 12:30: Sodium 144, Potassium 3.3 L, Chloride 102, Carbon Dioxide 27, Anion Gap 15.0 H, BUN 25 H, Creatinine 1.4 H, Estimated GFR (MDRD) 49 L, Glucose 296 H, Calcium 9.7, Total Bilirubin 0.8, AST 24, ALT 20, Alkaline Phosphatase 90, Total Protein 7.8, Albumin 4.0, Globulin 3.8, Albumin/Globulin Ratio 1.1, Lipase 25 08/24/20 12:30: WBC 7.9, RBC 5.03, Hgb 13.8 L, Hct 43.8, MCV 87.1, MCH 27.4, MCHC 31.5 L, RDW 14.6, Plt Count 247, MPV 10.4, Neut # (Auto) 6.9 H, Lymph # (Auto) 0.4 L, [place] # (Auto) 0.5, Eos # (Auto) 0.0, Baso # (Auto) 0.0, Absolute Nucleated RBC 0.00, Nucleated RBC % 0.0 - Diagnostic Imaging Results Diagnostic Imaging Results Comments: Plain film of the chest impression: 1. Multiple nodular densities consistent with known metastatic disease better depicted on comparison CT. CT of the chest noncontrast impression: 1. No pneumo mediastinum. Known fluid collections. Airway clear 2. Multiple scattered pulmonary nodules are overall increased in size in comparison to June 2020. Some of the nodules are cavitary. Differential includes metastatic disease versus infectious/inflammatory nodules. 3. Stable T7 compression fracture - Diagnosis Diagnosis: 1. Coronary artery disease status post CABG. 2. Diabetes on insulin. 3. Hypertension. 4. Esophageal cancer, metastatic. 5. Severe dysphagia with reported food bolus. 6. Congestive heart failure on diuresis - Plan Plan: 1. Discussed with oncology that this patient is at this time on palliative intent. With regard to any interventions these would be towards symptom management. From Dr. St's perspective, stenting would be preferable following dilation if possible as opposed to PEG tube placement for which he is not in favor. We discussed this in the context of necessary general general endotracheal intubation given the presumptive risk of aspiration with a retained foreign body. 2. Plan upper endoscopy, therapeutic, for foreign body and dilation. Risk and benefits discussed with the patient and family. 3. IV medications to include Lasix for CHF, IV metoprolol for the patient's history of hypertension. 4. Diabetic management with sliding scale 5. See CT imaging of the chest to evaluate further preprocedurally as well Please note that voice recognition software was used to transcribe this note and inadvertent errors might persist in spite of review and editing. I am obliged to you for your attention. I am thankful to you for allowing me to participate with you in this care of this patient.
[2020-08-24] MEDS: D5NS W/20 MEQ KCL 1,000 ML IV SCH (19:07)
[2020-08-24] MEDS: PANTOPRAZOLE 40 MG VIAL IVP SCH (19:08)
[2020-08-24] MEDS: methocarbamoL 500 MG TABLET PO SCH (19:08)
[2020-08-24] MEDS: METOCLOPRAMIDE 10 MG/2 ML VIAL IVP SCH (19:08)
--- NOTE | 2020-08-24 19:21 | CT Report ---
PROCEDURE: CHEST WO INDICATIONS: hx of esophageal cancer TECHNIQUE: Noncontrast 5 mm thick sections acquired from the pulmonary apices to the posterior costophrenic angl es. 7 mm thick coronal and sagittal MIP reformats were then acquired. For radiation dose reduction, the following was used: automated exposure control, adjustment of mA and/or kV according to patient size. COMPARISON: CT chest 06/30/2020, 02/09/2019.. FINDINGS: Image quality: Excellent. Lungs and pleura: Multiple bilateral pulmonary nodules, overall slightly increased in size. Some of the nodules are cavitary. For example: -Right lower lobe 1.5 x 1.4 cm, (4/232), previously 1.2 x 1.1 cm. -Left lower lobe subpleural 1.4 x 1.3 cm, (4/156), partially cavitary and previously 1.2 x 1.2 cm. -Left upper lobe 0.8 x 0.8 cm, (4/172), partially cavitary and previously 0.7 x 0.6 cm. No pleural effusions or pneumothorax. Central and peripheral airways are patent and normal in calibe r. Mediastinum: Post median sternotomy and CABG. Heart size is normal. Three-vessel coronary artery kyle cifications. No pericardial effusion. No mediastinal adenopathy by size criteria. No pneumomediast inum. Thoracic ascending aorta measures 3.5 cm. Moderate calcified plaque. Small hiatal hernia. Dista l esophagus is collapsed limiting evaluation. Stomach is not distended. Bones and chest wall: Right-sided port with the catheter tip at the cavoatrial junction. No suspicio us bony lesions. T7 compression fracture, unchanged. No axillary or supraclavicular adenopathy by si ze criteria. Thyroid is unremarkable. Abdomen: Atrophic left kidney. No hydronephrosis in the right kidney. Abdominal aortic vascular sten t. Spleen is mildly enlarged measuring 13.1 cm. Cholelithiasis. IMPRESSION: 1. No pneumomediastinum. No fluid collection. Airways are clear. 2. Multiple scattered pulmonary nodules are overall increase in size compared to June 2020. Some o f the nodules are cavitary. Differential includes metastatic disease versus infectious/inflammatory n odules. -PET/CT may be helpful for further evaluation. 3. Stable T7 compression fracture. Additional findings: Stable T7 compression fracture. CABG. Abdominal aortic stent. Mild splenomegaly. Gallstones. Reviewed by: Kimo Wick MD on 08/24/2020 7:20 PM PST Approved by: Kimo Wick MD on 08/24/2020 7:20 PM PST Station ID: [id number]
[2020-08-24] MEDS ORDERED: METOPROLOL 5 MG/5 ML VIAL IVP PRN (20:01)
[2020-08-24] MEDS ORDERED: INSULIN ASPART 300 UNIT/3 ML PEN SUBQ SCH (21:00)
[2020-08-24 21:11] LABS: C. PNEUMONIAE- RESP PCR PANEL NOT DETECTED
[2020-08-24] MEDS: FUROSEMIDE 20 MG/2 ML VIAL IVP SCH (21:22)
[2020-08-24] MEDS: METOPROLOL 5 MG/5 ML VIAL IVP SCH (21:25)
[2020-08-25] MEDS: methocarbamoL 500 MG TABLET PO SCH ×4 (00:02→17:29)
[2020-08-25] MEDS: METOCLOPRAMIDE 10 MG/2 ML VIAL IVP SCH ×4 (00:05→17:30)
[2020-08-25] MEDS: INSULIN REGULAR HUMAN 300 UNIT/3 ML VIAL SUBQ SCH ×3 (00:05→11:59)
[2020-08-25] MEDS: SODIUM CHLORIDE FLUSH 0.9% 10 ML SYRINGE IVP SCH ×3 (00:15→17:29)
[2020-08-25] MEDS: METOPROLOL 5 MG/5 ML VIAL IVP SCH ×3 (04:33→14:28)
[2020-08-25] MEDS: D5NS W/20 MEQ KCL 1,000 ML IV SCH ×3 (04:33→20:52)
[2020-08-25] MEDS: PANTOPRAZOLE 40 MG VIAL IVP SCH (06:22)
[2020-08-25] MEDS: FUROSEMIDE 20 MG/2 ML VIAL IVP SCH ×2 (06:22→14:28)
--- NOTE | 2020-08-25 07:35 | ANESTHESIA ---
Pre-Anesthesia VS, & Labs - Diagnosis food bolus - Procedure EGD for food bolus Vital Signs: Temp Pulse Resp BP Pulse Ox 36.5 C 60 18 140/56 H 97 08/24/20 23:52 08/24/20 23:52 08/24/20 23:52 08/25/20 04:33 08/24/20 23:52 Height: 5 ft 11 in Weight (kg): 82.5 kg Body Mass Index: 25.3 BMI Classification: Overweight - NPO >8 hours - Lab Results Current Lab Results: Laboratory Tests 08/25/20 06:02: POC Whole Bld Glucose 277 H 08/24/20 23:37: POC Whole Bld Glucose 254 H 08/24/20 12:30: Sodium 144, Potassium 3.3 L, Chloride 102, Carbon Dioxide 27, Anion Gap 15.0 H, BUN 25 H, Creatinine 1.4 H, Estimated GFR (MDRD) 49 L, Glucose 296 H, Calcium 9.7, Total Bilirubin 0.8, AST 24, ALT 20, Alkaline Phosphatase 90, Total Protein 7.8, Albumin 4.0, Globulin 3.8, Albumin/Globulin Ratio 1.1, Lipase 25 08/24/20 12:30: WBC 7.9, RBC 5.03, Hgb 13.8 L, Hct 43.8, MCV 87.1, MCH 27.4, MCHC 31.5 L, RDW 14.6, Plt Count 247, MPV 10.4, Neut # (Auto) 6.9 H, Lymph # (Auto) 0.4 L, [place] # (Auto) 0.5, Eos # (Auto) 0.0, Baso # (Auto) 0.0, Absolute Nucleated RBC 0.00, Nucleated RBC % 0.0 Lab results reviewed: Yes Fish Bones: 08/24/20 12:30 08/24/20 12:30 Home Medications and Allergies Active Medications Enoxaparin Sodium (Lovenox) 40 mg SUBQ DAILY KAY Furosemide (Lasix Inj 20mg Vial) 20 mg IVP BIDDIURETIC KAY Last Admin: 08/25/20 06:22 Dose: 20 mg Documented by: Potassium Chloride/Dextrose/Sod Cl () 1,000 mls @ 125 mls/hr IV .Q8H KAY Last Infusion: 08/25/20 04:33 Dose: Infused Documented by: Acetaminophen (Ofirmev) 100 mls @ 400 mls/hr IV Q6HR PRN PRN Reason: PAIN Insulin Human Regular (Humulin R) 1 - 5 unit SUBQ Q6HR [facility]; Protocol Last Admin: 08/25/20 06:19 Dose: 4 unit Documented by: Methocarbamol (Robaxin) 500 mg PO Q6HR [facility] Last Admin: 08/25/20 06:08 Dose: Not Given Documented by: Metoclopramide HCl (Reglan Inj) 10 mg IVP Q6HR [facility] Last Admin: 08/25/20 06:22 Dose: 10 mg Documented by: Metoprolol Tartrate (Lopressor Inj) 5 mg IVP Q6H PRN PRN Reason: Hypertensive Emergency Metoprolol Tartrate (Lopressor Inj) 5 mg IVP Q6H [facility] Last Admin: 08/25/20 04:33 Dose: Not Given Documented by: Ondansetron HCl (Zofran Inj) 4 mg IVP Q6HR PRN PRN Reason: Nausea / Vomiting Pantoprazole Sodium (Protonix) 40 mg IVP QDAC [facility] Last Admin: 08/25/20 06:22 Dose: 40 mg Documented by: Sodium Chloride (Normal Saline Flush 0.9%) 10 ml IVP 0100,0900,1700 [facility] Last Admin: 08/25/20 00:15 Dose: 10 ml Documented by: Sodium Chloride (Normal Saline Flush 0.9%) 10 ml IVP PRN PRN PRN Reason: NEEDED PER PROVIDER ORDERS Furosemide [Lasix] 40 mg PO DAILY 02/28/19 Isosorbide Mononitrate ER [Imdur] 30 mg PO DAILY 02/28/19 Insulin Glargine [Lantus Solostar] 20 units SUBQ QPM 06/12/19 Metoprolol Tartrate 25 mg ORAL BID 06/12/19 ondansetron HCL [Zofran] 8 mg PO Q8HR PRN 04/09/20 Aspirin [Children's Aspirin] 81 mg PO DAILY 04/25/20 polyethylene glycoL 3350 [Miralax] 17 gm PO DAILY PRN 04/25/20 Pantoprazole [Protonix] 40 mg PO DAILY 06/20/20 Sucralfate [Carafate] 08/19/20 Allergies/Adverse Reactions: Allergies Allergy/AdvReac Type Severity Reaction Status Date / Time No Known Drug Allergies Allergy Verified 08/24/20 11:29 Anes History & Medical History - Anesthetic History Anesthesia Complications: reports: No previous complications Family history of Anesthesia Complications: Denies Family history of Malignant Hyperthermia: Denies - Medical History Cardiovascular: reports: Congestive heart failure, Hypertension, High cholesterol, Coronary artery disease (CABG ~10 yrs ago per patient, no cardiac problems since), Other Pulmonary: reports: None Gastrointestinal: reports: GERD, Other (food bolus 5-6 days ago per patient) Urinary: reports: Nocturia, Other Neuro: reports: CVA, Peripheral neuropathy, Other (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) Musculoskeletal: reports: Osteoarthritis, Fatigue, Chronic back pain Endocrine/Autoimmune: reports: Type 2 diabetes Blood Disorders: reports: None Skin: reports: None Smoking Status: Former smoker History of Cancer?: Yes (stage 4 metastatic cancer, patient unsure origin, possible esophageal/lung) - Surgical History Cardiothoracic: CABG Orthopedic: Knee replacement Results - Echo Results Echo Results: Report reviewed (normal EF) Exam General: Alert, Oriented x3, Cooperative, No acute distress Dental: WNL Mouth Openin Fingerbreadth Neck Mobility: Normal Mallampati classification: II Respiratory: Lungs clear, Normal breath sounds, No respiratory distress, No accessory muscle use Cardiovascular: Regular rate, Normal S1, Normal S2, No murmurs Plan Anesthesia Type: General (as back up), MAC Consent for Procedure(s) Verified and Reviewed: Yes Code Status: Attempt Resuscitation ASA classification: 4-Incapacitating disease Is this case an emergency?: No
[2020-08-25] MEDS: ENOXAPARIN 40 MG/0.4 ML SYRINGE SUBQ SCH (08:32)
[2020-08-25] MEDS ORDERED: LACTATED RINGERS 1,000 ML IV ONE (09:40)
--- NOTE | 2020-08-25 09:58 | PROVIDER PROGRESS NOTE ---
Progress Note 80-year-old male with multiple comorbid states including CHF, CAD, diabetes who has metastatic esophageal cancer and has undergone immunotherapy together with external beam radiation. He presents with food bolus after having undergone pneumatic dilatation less than 1 month prior. Endoscopic findings are as follows: 1. Gastroesophageal junctional mass with stricturing pinpoint less than 2 to 3 mm dilated initially to 15 mm without any complication. Proximal to this was an impacted food bolus which was easily passed after dilatation. 2. Easily able to traverse the area of concern entering the duodenum which was without any pathology, no duodenitis 3. Stomach with no gastritis or other concerning features. Food bolus was easily passed from the esophagus above the area stricturing into the stomach and was noted thereof. 4. Esophagus was again dilated to 19 mm without any complication. No active bleeding. With regard to the plan going forward will resume patient's oral medication. We will switch to soft mechanical/dysphagia diet. We will request nutritional consult. Likely patient to be discharged within the next 12 to 23 hours. Discussed preoperatively with Dr. St who did not feel PEG tube is appropriate. Of note however this is a distal esophageal lesion for which stenting would carry with it a significant risk of migration. Defer to interventional gastroenterology for further management. Hold aspirin at this time. Please note that voice recognition software was used to transcribe this note and inadvertent errors might persist in spite of review and editing. I am obliged to you for your attention. I am thankful to you for allowing me to participate with you in this care of this patient.
[2020-08-25] MEDS ORDERED: fentaNYL 100 MCG/2 ML VIAL IVP PRN (10:09)
[2020-08-25] MEDS ORDERED: ATROPINE ABBOJECT 1 MG/10 ML SYRINGE IVP PRN (10:09)
[2020-08-25] MEDS ORDERED: METOCLOPRAMIDE 10 MG/2 ML VIAL IVP PRN (10:09)
[2020-08-25] MEDS ORDERED: ONDANSETRON 4 MG/2 ML VIAL IVP PRN (10:09)
[2020-08-25] MEDS ORDERED: HYDROmorphone 0.5 MG/0.5 ML SYRINGE IVP PRN (10:09)
[2020-08-25] MEDS ORDERED: MORPHINE 2 MG/ML CARPUJECT IVP PRN (10:09)
[2020-08-25] MEDS ORDERED: ePHEDrine 50 MG/ML VIAL IVP PRN (10:09)
[2020-08-25] MEDS ORDERED: NALOXONE 0.4 MG/ML VIAL IVP PRN (10:09)
[2020-08-25] MEDS ORDERED: LACTATED RINGERS 1,000 ML IV SCH (11:00)
--- NOTE | 2020-08-25 11:29 | PHARMACY PROGRESS NOTE ---
- Best Possible Medication History Admit Date and Time: 08/24/20 8056 Processed by: Pharmacy Medication History completed: Yes Patient Interview: Completed Secondary Source(s): Other family member (PATIENT INTERVIEWED BY ROUGH ROUNDER. PATIENT REPORTS HIS DAUGHTER TAKES CARE OF MEDICATIONS. DAUGHTER CALLED AND CONFIRMED HOME MEDICATIONS. WAS UNSURE ABOUT ZOLOFT AND AFLUZOSIN ), Physician records, Pharmacy records, Insurance records As the person ultimately responsible for medication therapy, providers are able to order a medication from an existing home medication list in [facility] via the "Reconcile Routine" prior to Confirmation of that medication by support group manager. Such practice is discouraged except when the physician, in their clinical judgment, deems that a medical need exists for a medication without regard to previous use.
[2020-08-25] MEDS ORDERED: ONDANSETRON HCL 8 MG PO PRN (14:45)
[2020-08-25] MEDS ORDERED: polyethylene glycoL 3350 17 GM PACKET PO PRN (14:45)
[2020-08-25] MEDS: INSULIN ASPART 300 UNIT/3 ML PEN SUBQ SCH ×2 (17:52→21:10)
[2020-08-25] MEDS ORDERED: ATORVASTATIN 10 MG TABLET PO SCH (21:00)
[2020-08-25] MEDS ORDERED: INSULIN GLARGINE 300 UNIT/3 ML PEN SUBQ SCH (21:00)
[2020-08-25] MEDS: SUCRALFATE 1 GM/10 ML UDC PO SCH (21:05)
[2020-08-25] MEDS: METOPROLOL TARTRATE 25 MG TABLET PO SCH (21:05)
[2020-08-26] MEDS: METOCLOPRAMIDE 10 MG/2 ML VIAL IVP SCH ×3 (00:25→12:13)
[2020-08-26] MEDS: methocarbamoL 500 MG TABLET PO SCH ×3 (00:25→12:13)
[2020-08-26] MEDS: SODIUM CHLORIDE FLUSH 0.9% 10 ML SYRINGE IVP SCH ×2 (00:26→08:05)
[2020-08-26] MEDS ORDERED: DEXTROSE 5%-0.9% NACL 1,000 ML IV SCH (05:00)
[2020-08-26] MEDS ORDERED: POTASSIUM CHLOR 20 MEQ/100 ML 20 MEQ/100 ML BAG IV SCH (05:00)
[2020-08-26] MEDS: INSULIN ASPART 300 UNIT/3 ML PEN SUBQ SCH ×2 (08:03→12:13)
[2020-08-26] MEDS: SUCRALFATE 1 GM/10 ML UDC PO SCH ×2 (08:04→12:13)
[2020-08-26] MEDS: ENOXAPARIN 40 MG/0.4 ML SYRINGE SUBQ SCH (08:26)
[2020-08-26] MEDS ORDERED: PANTOPRAZOLE 40 MG TABLET PO SCH (09:00)
[2020-08-26] MEDS ORDERED: ISOSORBIDE MONONITRATE ER 30 MG TABLET PO SCH (09:00)
[2020-08-26] MEDS ORDERED: ALFUZOSIN HCL 10 MG PO SCH (09:00)
[2020-08-26] MEDS ORDERED: SERTRALINE 25 MG TABLET PO SCH (09:00)
[2020-08-26] MEDS ORDERED: FUROSEMIDE 40 MG TABLET PO SCH (09:00)
[2020-08-26] MEDS ORDERED: ACETAMINOPHEN 500 MG TABLET PO PRN (10:03)
[2020-08-26] MEDS: METOPROLOL TARTRATE 25 MG TABLET PO SCH (12:19)
[2020-08-26 12:24] VITALS: BP 117/51
[2020-08-26] MEDS: D5NS W/20 MEQ KCL 1,000 ML IV SCH (14:34)
== END 2020-08-26 16:57 | disposition home or self-care (01) ==
LOC: ED 11:13 → MS2 17:56
PROVIDERS: ADMIT Surgery; ATTEND Surgery
PROC: 0DC48ZZ Extirpation of Matter from Esophagogastric Junction, Via Natural or Artificial Opening Endoscopic (ICD-10-PCS; 2020-08-25)
PROC: 0D748ZZ Dilation of Esophagogastric Junction, Via Natural or Artificial Opening Endoscopic (ICD-10-PCS; principal; 2020-08-25 07:22)
DX: T18.128A Food in esophagus causing other injury, initial encounter (principal); C15.9 Malignant neoplasm of esophagus, unspecified; I11.0 Hypertensive heart disease with heart failure; I50.9 Heart failure, unspecified; Z79.4 Long term (current) use of insulin; C78.00 Secondary malignant neoplasm of unspecified lung; Z92.3 Personal history of irradiation; I25.10 Atherosclerotic heart disease of native coronary artery without angina pectoris; E11.42 Type 2 diabetes mellitus with diabetic polyneuropathy; K21.9 Gastro-esophageal reflux disease without esophagitis
CPT/HCPCS: 36415; 43247; 43249; 71045; 71250; 80053; 83690; 85025; 87631; 96361; 96365; 96366; 96367; 96372; 96375; 96376; 99285; A9270; G0378; J0131; J1650; J1815; J2765; J7120; 0202U

== ENCOUNTER 2020-08-26 15:30 | Outpatient (CLI) | payer MEDICARE, OTHER ==
--- NOTE | 2020-08-26 16:29 | ADVANCE CARE PLANNING NOTE ---
Advance Care Planning - Planning Encounter Date: 08/26/20 (Telehealth given Covid precautions and need for family confere nce) Time: 15:30 (to 1610) Purpose: To define goals of care in the context of transitioning to hospice vs palliative / supportive care Parties in Attendance: Lindy Ramirez, Jolie Ramirez, Luzmaria Ramirez-currently known DPOA Decisional Capacity of the Patient: Patient with declining cognitive status, does not present with decision-making capacity as far as nuances regarding weighing benefits and burdens of medical treatments and repercussions of decisions accordingly. Patient is able to express values but with complicated decisions, defers to daughters. Discussion at length regarding will need to be shared decision making in transitioning to hospice. Patient does get perseverative, unable to focus, has very poor short term memory, i.e. in the context of even how he came to be hospitalized this weekend. He does understand he is cancer, but does not understand his current status other than in generalities, does know it is not curative and currently not getting treatment. - Encounter Subjective/Patient's Story: Patient when asked what is wrong with him, reports "I have stage IV esophageal cancer". He does understand that he has a disease that not curative, often will refer to himself as "riddled with cancer". Also perseverates on with dig nity, but "his will not let them do it". Does not really understand in the context of what is to be expected in his impending decline. Patient's current quality of life continues to fluctuate, swallowing problems have been most difficult for him, and often produce a significant bout of anxiety. Patient due to his short-term memory, has difficulty with putting pieces together, including adherence to medications, management of blood sugars, and adequate nutrition/hydration. Daughters have been trying to manage afar, are in contact with him frequently, he does live with his who has Parkinson's and is having failing health issues as well. Objective/Medical Story: This is an 80-year-old gentleman who originally presented in December 2018 with dysphagia and on EGD 02/2019 was found to have a tumor. It did originally present is a large fungating mass partially obstructing, at that time he was staged to a clinical T3N0. He underwent chemotherapy and proton radiation therapy which she completed in April 2019. They had decided against further surgery given his age and complexity of his situation. He was on surveillance, but a PET scan in January 2020 showed new bilateral pulmonary nodules in addition to increased activity in his lower esophagus concerning for recurrent disease. He is at that point in time been treated with immunotherapy, which he tolerated fairly well, unfortunately he continued to progress. He is currently have this suspended. Currently he is on supportive care only. He did receive an esophageal dilatation with improvement of his symptoms, as he was getting increased difficulty with choking and swallowing. This has been what has impacted his quality of life. Unfortunately it also is been his progressive cognitive short-term memory issues which have impacted his safety and coping. Patient has had ongoing weight loss, and most recently now presented acutely with a food bolus and obstruction. Patient tends to eat just cheese, oatmeal cookies, is not adherent to any kind of dietary restrictions. He was able to have it dilated again to 19 mm without any complications or active bleeding. There has been some conversation about stenting, though given the location and surgeon notes her significant risk of migration. They are deferring to interventional gastroenterology for further management. Patient has been referred to hospice, but given his perseverative nature, and the thought at that point a couple weeks ago he may need further dilatation, the agreement had been to support him with palliative care. Now the patient has had an acute crisis, recurrence of his stenosis, most likely attributed not specifically to tumor but more to side effects of radiation though mass-effect is certainly a concern. cUhe elizabethkaroline who will be the decision makers at least in shared decision-making with her father, have wanted to have further conversation about the continuum of care. Goals of Care: Patient does have a POLST completed with Dr. Key in February 2020. He does have POLST with DN AR and limited additional interventions. Up to this point in time given the complexity of his care there is still has been hesitation to consider PEG tube management. Patient and live alone, this would be, complex, and most likely would not add to his quality of life though certainly could extend his quantity. Unfortunately has been complicated by the Covid pandemic, they had originally been planned to be placed in assisted living, closer to daughters for better management, at this point the goals have been to keep them in their own home with increased support. Unfortunately they are moving toward needing 24/7 supervision, all 3 daughters work but could take alternating shifts and are considering FMLA. Unfortunately, there is a shortage of in home workers given the pandemic and work force/needs. The more acute question is if patient was to obstruct again, the course of action.There are several directions this may go 1. Could evaluate and consider ongoing recurrent dilatations until no longer appropriate, or possible. This would also include the question of whether stent placement would be appropriate. 2. If patient/family does not want further hospitalization or dilatations, transition to comfort measures with focus on symptom management and hospice support and home setting. Much discussion regarding how this would look, particularly in the context of fairly quick decline with no nutritional/hydration support. 3. The other question is in the continuum of care whether to transition to hospice, though this would mean no further hospitalizations would need to revoke if did want dilatation or further interventions. Or to continue with palliative care support weighing benefits and burdens of decisions as they come up. This unfortunately is with no 18/04 call for symptom management. Plan: The family meeting included much discussion on each of the above points, weighing benefits of burdens. They would like their father to weigh in, but do understand the nuances may be too difficult for him. But we could elicit his values and incorporated into future decision making. Jolie is here this weekend, discussed could at least get comfort medications in the home. They had felt quite helpless with patient's acute obstruction. Home visit has been scheduled for Tuesday to include patient and family and further discussion regarding moving forward. Though do recognize acute crisis could recur fairly quickly. Patient has had continued weight loss, but remains in good spirits, is ambulatory and without high symptom burden. Did reach out and staffed patient with medical nurse anesthesia program director Dr. Gutierrez, will receive patient for hospice admit when goals are defined as comfort only and/or crisis occurs. Additional Discussion: Provider in office, daughters and home settings with group meeting function. Reviewed telehealth advance care planning goals, and ACP billing. Code Status: Do Not Attempt Resuscitation Time spent on advance care plannin minutes
== END 2020-08-26 15:31 | disposition home or self-care (01) ==
LOC: PC 15:30
PROVIDERS: ATTEND Nurse Practitioner Adult Health
DX: Z51.5 Encounter for palliative care (principal); C15.5 Malignant neoplasm of lower third of esophagus; C78.02 Secondary malignant neoplasm of left lung; C78.01 Secondary malignant neoplasm of right lung; R63.4 Abnormal weight loss; R41.89 Other symptoms and signs involving cognitive functions and awareness; Z66 Do not resuscitate
CPT/HCPCS: 99497

== ENCOUNTER 2020-09-01 14:30 | Outpatient (CLI) | payer MEDICARE, OTHER ==
--- NOTE | 2020-09-01 16:09 | CONSULTATION NOTE ---
Palliative Care Follow Up - Referral Referring Provider: Dr. Oni St Time of Visit: 8422-5410 Referral setting: Home Referral Reason: Met Esophageal CA/Dysphagia/Goals of Care - Information Sources Records reviewed: Previous records reviewed History/Review of Systems obtained from: Patient, Family (daughter Jolie/Luzmaria and Criss present; daughter Lindy on phone) Exam limitations: Clinical condition (patient with severe STM issues) - History of Present Illness Update Brief HPI Update: This is an 80-year-old gentleman who has recurrent metastatic distal esophageal adenocarcinoma, with progressive pulmonary mets. He has been on pembrolizumab, but most recently was found to have progression on PET scan and currently not getting treatment. Unfortunately he did have an acute hospitalization for episode of dysphagia, and found to have a "food bolus" on EGD at the gastroesophageal junctional stricture point, with less than 2 to 3 mm stricture, it did dilate up to 19 mm without complications. He recently underwent a dilatation about a month ago, the patient has not been following any kind of di et restrictions though had been counseled on precautions. He has now been put on a soft mechanical/dysphagia diet, he does have a list of foods from the dietitian, family is trying to get him to be compliant. Patient does have mild cognitive impairment, with severe short-term memory issues, and difficulty remembering. He does eat fast, this also adds to his choking, and perseverates about being able to swallow pills as well. This is complex in the context that patient and both need support, they are both deteriorating cognitively, and have been living on their own with support intermittently from the daughters. Her daughter Lindy is coming to take a 2- month turn providing support in the home setting. The goal is to keep him at home, recognizing that it any point he could have an acute decline or complications from his cancer. At this point the plan will be to transition to hospice. Patient has not had any trouble with choking, has been kept compliant mostly by oversight, unfortunately he will be on his own this next week. We did review the need to be closer to pure for texture, and watch diet closely. Originally had some discomfort with swallowing after EGD, and this is since cleared up. He denies any pain or discomfort at this point in time in his chest. His lungs are clear, he has no lower extremity edema, he is doing well with fluids. His weight has remained fairly stable despite punctuating intake. His daughters are concerned has patient was having trouble with oral secretions, and this came fairly quickly. We did discuss having oral suction in the home, given his diagnosis of metastatic esophageal cancer and dysphagia. They would need to be present though for patient be able to manage, it would make him feel better though to have a means to be able to help him as it was quite distressing to patient to not be able to swallow his secretions, and was spitting every few minutes. Past Medical History: CHF diastolic with preserved function, hypertension, hyperlipidemia, CAD, AAA, history of CVA, peripheral neuropathy, type 2 diabetes insulin-dependent moderately controlled, GERD, nocturia, chronic vision loss, chronic sinusitis, chronic hearing loss with hearing aids, 1 working kidney, depression, anxiety, osteoarthritis, chronic back pain, original esophageal cancer diagnosis stage II 12/2018. Social History - Living Situation Living arrangement: At home Living Situation: With spouse/s.o. Support System: Patient has had declining mostly cognitively not so much functionally. He does still have persistent fatigue. He is able to manage his own ADLs. He lives with his Criss, his Parkinson's, he is having increased complications related to this. They have 3 daughters, have been taking turns and providing support, all are quite anxious about managing end-of-life care. They have had difficulty hiring given the pandemic, as well as parents reluctance to have someone in their house. They have hired a few shifts, Lindy will be taking some time, Luzmaria is coming over the weekend until Lindy starts her 2months coming Tuesday. Medications/Allergies - Medications Home Medications: Ambulatory Orders Medication Instructions Recorded Confirmed Furosemide [Lasix] 40 mg PO DAILY 02/28/19 08/25/20 Insulin Glargine [Lantus Solostar] 20 units SUBQ QPM 06/12/19 08/25/20 Metoprolol Tartrate 25 mg ORAL BID 06/12/19 08/25/20 ondansetron HCL [Zofran] 8 mg PO Q8HR PRN 04/09/20 09/01/20 polyethylene glycoL 3350 [Miralax] 17 gm PO DAILY PRN 04/25/20 09/01/20 Pantoprazole [Protonix] 40 mg PO DAILY 06/20/20 08/25/20 Sucralfate [Carafate] 10 ml PO TID 08/25/20 09/01/20 - Allergies Allergies/Adverse Reactions: Allergies Allergy/AdvReac Type Severity Reaction Status Date / Time No Known Drug Allergies Allergy Verified 08/24/20 11:29 Review of Systems - Constitutional Constitutional: reports: Fatigue, Poor appetite (diet of cookies and cheese per daughter and unable to follow through on warming up food that has been previously prepared), Weight loss (192lb). denies: Fever - Eyes Eyes: reports: Vision loss - Ears, Nose & Throat Ears, Nose & Throat: reports: Hearing loss, Hearing aids, Other (dysphagia with pills that has improved with carafate use first thing in AM) - Cardiovascular Cardiovascular: reports: Edema (trace), Decr. exercise tolerance. denies: Chest pain - Respiratory Respiratory: reports: Cough (occasionally with eating). denies: SOB at rest - Gastrointestinal Gastrointestinal: reports: Constipation, Poor appetite, Early satiety, Other (forgets to eat/ on new restrictions) - Genitourinary Genitourinary: reports: Frequency - Musculoskeletal Musculoskeletal: reports: Assistive devices (uses cane) - Integumentary Integumentary: reports: Dryness - Neurological Neurological: reports: General weakness, Memory problems - Psychiatric Psychiatric: reports: Anxiety - Endocrine Endocrine: reports: Diabetes type 2 (average 201; today 135) - All Other Systems All Other Systems: reports: Reviewed and negative (ROS limited as patient is a poor historian due to cognitive impairment and ROS supplemented by daughterLindy) Physical Exam - Vital Signs Temperature: 96.4 C Pulse Rate: 62 Respiratory Rate: 18 O2 Saturation: 97 (ra @ rest) Blood Pressure: 112/62 - Physical Exam General Appearance: positive: No acute distress, Alert Eyes Bilateral: positive: Normal inspection ENT: positive: No signs of dehydration Neck: positive: Trachea midline. negative: Lymphadenopathy (R), Lymphadenopathy (L) Cardiovascular: positive: Regular rate & rhythm Respiratory: positive: No respiratory distress, Breath sounds nml Abdomen: positive: Soft, Nml bowel sounds, Other (+round) Skin: positive: Dryness (dry, scattered flaky skin) Extremities: positive: Pedal edema (trace bilateral pedal edema; has two sets of socks on) Neurologic/Psychiatric: positive: Mood/affect nml, Disoriented to time, Weakness, Flat affect Palliative Care - POLST Patient has POLST: Yes POLST Status: DNR, Selective Treatment Pain: No pain Feelings of wellbeing/Perceived Quality of Life: Fair, Acceptable, Improved Constipation: No Performance Status: Patient has had some mild functional decline, is ambulatory with his cane. He has persistent fatigue, and does spend most the time in a recliner and or walking around the house. He is still able to manage his ADLs. I would put him at a PPS of 60% - Palliative Care Discussion: Patient with very little insight to the seriousness of his current situation, though does understand he has "stage IV esophageal cancer". Had spoken with daughters at a separate ACP planning meeting, about weighing benefits and burdens of transitioning to hospice versus staying on palliative care. They had spoken to him over the weekend, he did not find it traumatizing to do the EGD, given his current quality of life decision at this point in time is to continue with palliative care, and transition to hospice if acute crisis or decline. The goal to continue on palliative would be to continue with the dilatations as long as the benefits outweigh the burdens, and no further complications. The expectation with no treatment, is of course he will have disease progression and this may not be a option in the future. Did discuss so having comfort meds in the home, to be able to transition quickly and to bridge any kind of concerns that may end up in ED or with hospitalization which is what they would like to avoid. Impression and Recommendations - Palliative Care Impression: This is an 80-year-old gentleman with recurrent metastatic distal esophageal adenocarcinoma with progressive pulmonary mets. Recently hospitalized for "food bolus", with narrowing esophageal stricture both related to disease and scar tissue, patient benefited from esophageal dilatation. Patient at this point in time will continue with palliative care, weighing benefits of burdens of dilatations moving forward, and transition to hospice if progressive disease or decline. Palliative care continue provide support for pain and symptom management and anticipatory guidance. Recommendations/Counseling Done: 1. Esophageal stricture. Did reach out to Dr. Land's regarding plan moving forward, he did feel like he could offer further EGD, it was a combination noted on exam of tumor and scar tissue, but feels currently would still be safe to do this. We did discuss scheduling this proactively, he got about 4 weeks with his last dilatation, we will go ahead and move forward on scheduling this. This was acceptable as part of goals of care, will continue to support with palliative care service until no longer of benefit. Concern regarding patient's choking, difficulty managing secretions, will go ahead and order suction to manage acute issues with secretions and address concerns. Call to [facility], if not covered by insurance 60$/month. Will order through Medicare first. 2. Constipation. Patient reports currently is managed, does have MiraLAX for as needed use, will be receiving more oversight for medication adherence. We will continue to monitor. 3. Protein calorie malnutrition. Patient with very few food likes, now with restrictive diet, at high risk for ongoing concerns. Did review restrictions, encouraged pured foodstuffs, as well as soft cheeses versus hard. He is staying adequately hydrated, also suggested use of resources juices as he is very much opposed to Ensure. Encouraged also more small frequent feedings. He does do better with family present and encouraging and monitoring intake and aspiration precautions. 4. Advanced care planning. At this point in time will continue with palliative care, monitoring for complications or progression of disease, at that point in time will transition to hospice. Family is working very hard at putting a care plan together, there is lack of resources given the Covid pandemic. [id number]. Patient with dysphagia related to Metastatic esophageal cancer and scar tissue from radiation, requires intermittent oral suction to manage secretions, will benefit from having suction unit in the home for safety. Time Spent: 45 minutes with greater than 50% of this done in counseling regarding symptom management, goals of care, and anticipatory guidance as well as coordination of care with surgeon.
== END 2020-09-01 14:31 | disposition home or self-care (01) ==
LOC: PC 14:30
PROVIDERS: ATTEND Nurse Practitioner Adult Health
DX: Z51.5 Encounter for palliative care (principal); K22.2 Esophageal obstruction; K59.00 Constipation, unspecified; E46 Unspecified protein-calorie malnutrition; R13.10 Dysphagia, unspecified; C15.9 Malignant neoplasm of esophagus, unspecified; C78.00 Secondary malignant neoplasm of unspecified lung; G31.84 Mild cognitive impairment of uncertain or unknown etiology; I11.0 Hypertensive heart disease with heart failure; I50.30 Unspecified diastolic (congestive) heart failure; E11.42 Type 2 diabetes mellitus with diabetic polyneuropathy; Z79.4 Long term (current) use of insulin; Z66 Do not resuscitate
CPT/HCPCS: 99349

== ENCOUNTER 2020-09-25 16:13 | Outpatient (CLI) | payer MEDICARE, OTHER | END 2020-09-25 16:14 | disposition home or self-care (01) | LOC: COV 16:13 | PROVIDERS: ATTEND Surgery | DX: Z01.812 Encounter for preprocedural laboratory examination (principal); Z85.01 Personal history of malignant neoplasm of esophagus; K22.2 Esophageal obstruction; I25.10 Atherosclerotic heart disease of native coronary artery without angina pectoris; I71.4 Abdominal aortic aneurysm, without rupture; Z20.828 Contact with and (suspected) exposure to other viral communicable diseases ==

== ENCOUNTER 2020-09-30 09:42 | Day surgery (SDC) | payer MEDICARE, OTHER ==
--- NOTE | 2020-09-30 09:42 | ANESTHESIA ---
Pre-Anesthesia VS, & Labs Height: 5 ft 11 in <Samara Ponce - Last Filed: 09/30/20 09:40> - NPO >8 hours <Ursula Choudhury - Last Filed: 09/30/20 10:53> - Diagnosis Hx of esophageal cancer/stricture (Samara Ponce) - Procedure EGD (RosarioSamara) Vital Signs: Temp Pulse Resp BP Pulse Ox 36 C L 48 L 12 143/56 H 100 09/30/20 10:01 09/30/20 10:01 09/30/20 10:01 09/30/20 10:01 09/30/20 10:01 - Lab Results Current Lab Results: Laboratory Tests 09/30/20 10:18: POC Whole Bld Glucose 110 H Home Medications and Allergies <Samara Ponce - Last Filed: 09/30/20 09:40> <Ursula Choudhury - Last Filed: 09/30/20 10:53> Home Medications: Ambulatory Orders Isosorbide Dinitrate 30 mg PO DAILY 09/15/20 Rosuvastatin Calcium [Crestor] 10 mg PO DAILY 09/30/20 Furosemide [Lasix] 40 mg PO DAILY 02/28/19 Insulin Glargine [Lantus Solostar] 20 - 30 units SUBQ QPM 06/12/19 Metoprolol Tartrate 25 mg ORAL BID 06/12/19 polyethylene glycoL 3350 [Miralax] 17 gm PO DAILY PRN 04/25/20 Pantoprazole [Protonix] 40 mg PO DAILY 06/20/20 Sucralfate [Carafate] 10 ml PO TID 08/25/20 Aspirin [Aspirin EC] 81 mg PO DAILY 09/15/20 Isosorbide Dinitrate 30 mg PO DAILY 09/15/20 Allergies/Adverse Reactions: Allergies Allergy/AdvReac Type Severity Reaction Status Date / Time No Known Drug Allergies Allergy Verified 08/24/20 11:29 Anes History & Medical History - Medical History Cardiovascular: reports: Congestive heart failure, Hypertension, High cholesterol, Coronary artery disease, Other Pulmonary: reports: Sleep apnea Gastrointestinal: reports: GERD, Chronic constipation, Other Urinary: reports: Nocturia, Other Neuro: reports: CVA, Peripheral neuropathy Musculoskeletal: reports: Osteoarthritis, Fatigue, Chronic back pain, Other Endocrine/Autoimmune: reports: Type 2 diabetes Blood Disorders: reports: None Skin: reports: None Smoking Status: Former smoker - Surgical History General: Colonoscopy, EGD Cardiothoracic: CABG, AAA Orthopedic: Knee replacement <Samara Ponce - Last Filed: 09/30/20 09:40> - Anesthetic History Anesthesia Complications: reports: No previous complications <Ursula Choudhury Last Filed: 09/30/20 10:53> Exam General: Alert Dental: WNL Neck Mobility: Reduced Mallampati classification: II Respiratory: Lungs clear Cardiovascular: Regular rate <Ursula Choudhury Last Filed: 09/30/20 10:53> Plan Anesthesia Type: Interscalene Block <Samara Ponce - Last Filed: 09/30/20 09:40> Anesthesia Type: MAC Consent for Procedure(s) Verified and Reviewed: Yes Code Status: Do Not Attempt Resuscitation ASA classification: 4-Incapacitating disease Is this case an emergency?: No <Ursula Choudhury Last Filed: 09/30/20 10:53>
--- NOTE | 2020-09-30 09:48 | SURGERY HX AND PHYSICAL(T) ---
Surgical History & Physical - Chief Complaint/HPI Chief Complaint: Esophageal cancer with recurrent stricture History of Present Illness: 80-year-old male with multiple comorbid states including CHF, CAD, diabetes who has metastatic esophageal cancer and has undergone immunotherapy together with external beam radiation. Historically presented with with food bolus after having undergone pneumatic dilatation. Endoscopic findings at the time of his hospital admission were as follows: 1. Gastroesophageal junctional mass with stricturing pinpoint less than 2 to 3 mm dilated initially to 15 mm without any complication. Proximal to this was an impacted food bolus which was easily passed after dilatation. 2. Easily able to traverse the area of concern entering the duodenum which was without any pathology, no duodenitis 3. Stomach with no gastritis or other concerning features. Food bolus was easily passed from the esophagus above the area stricturing into the stomach and was noted thereof. 4. Esophagus was again dilated to 19 mm without any complication. No active bleeding. Discharge patient long as he continues to tolerate his medications and oral intake. Planned outpatient follow-up. Overall doing better since intervention. Will likely need repeat intervention. Discussed preoperatively with Dr. St who did not feel PEG tube is appropriate. Of note however this is a distal esophageal lesion for which stenting would carry with it a significant risk of migration. Defer to interventional gastroenterology for further management. Hold aspirin at this time. Interval history is as follows: Continues to have pickups, dysphagia, and other concerns as it relates to swallowing. Neck palliative care has discussed the possibility of a gastrostomy tube. This was also discussed with his primary care Dr. Fay as well. Patient remains recalcitrant as it relates to its placement. - PMH/PSH/Social Hx Does the pt have a hx of MRSA?: No Neurological History: CVA, Peripheral neuropathy Eyes, Ears, Nose, Throat: Chronic vision loss, Chronic hearing loss Cardiovascular: Congestive heart failure, Hypertension, High cholesterol, Coronary artery disease, Other Respiratory: Sleep apnea Skin: None Endocrine/Autoimmune: Type 2 diabetes Gastrointestinal: GERD, Chronic constipation, Other MEDICAL TRANSCRIBER: None Urinary: Nocturia, Other Musculoskeletal: Osteoarthritis, Fatigue, Chronic back pain, Other Blood Disorders: None Psychiatric: Depression, Anxiety General: Colonoscopy, EGD Orthopedic: Knee replacement Cardiothoracic: CABG, AAA Smoking Status: Former smoker - Home Meds and Allergies Home Medications: Insulin Glargine [Lantus Solostar] 10 units SUBQ QPM 06/12/19 Metoprolol Tartrate 25 mg ORAL BID 06/12/19 polyethylene glycoL 3350 [Miralax] 17 gm PO DAILY PRN 04/25/20 Pantoprazole [Protonix] 40 mg PO DAILY 06/20/20 Sucralfate [Carafate] 10 ml PO TID 08/25/20 Isosorbide Dinitrate 30 mg PO DAILY 09/15/20 Rosuvastatin Calcium [Crestor] 10 mg PO DAILY 09/30/20 Allergies/Adverse Reactions: Allergies Allergy/AdvReac Type Severity Reaction Status Date / Time No Known Drug Allergies Allergy Verified 08/24/20 11:29 - Review of Systems Gastrointestinal: Difficulty swallowing - Vital Signs Height: 1.8 m - Physical Exam General Appearance: positive: No acute distress, Alert, Mild distress Eyes Bilatera: positive: Normal inspection, PERRL, EOMI ENT: positive: ENT inspection nml Neck: positive: Nml inspection Respiratory: positive: Chest non-tender, No respiratory distress, Breath sounds nml. negative: Wheezes, Rales, Rhonchi Cardiovascular: positive: Regular rate & rhythm Abdomen: positive: Non-tender Skin: positive: Color nml Extremities: positive: Non-tender, Full ROM, Nml appearance Neurologic/Psychiatric: positive: Oriented x3, CN's nml (2-12), Motor nml, Sensation nml, Mood/affect nml - Patient Review Patient Review: Problems were reviewed with the patient during this visit. Medications were reviewed with the patient during this visit. Allergies were reviewed this patient during this visit. Pertinent Tests Reviewed: All pertitent test for this patient were reviewed. - Assessment & Plan Assessment and Plan: 80-year-old male with multiple comorbid states including CHF, CAD, diabetes who has metastatic esophageal cancer and has undergone immunotherapy together with external beam radiation. He presents with food bolus after having 80-year-old male with multiple comorbid states including CHF, CAD, diabetes who has metastatic esophageal cancer and has undergone immunotherapy together with external beam radiation. Historically presented with with food bolus after having undergone pneumatic dilatation. Endoscopic findings at the time of his hospital admission were as follows: 1. Gastroesophageal junctional mass with stricturing pinpoint less than 2 to 3 mm dilated initially to 15 mm without any complication. Proximal to this was an impacted food bolus which was easily passed after dilatation. 2. Easily able to traverse the area of concern entering the duodenum which was without any pathology, no duodenitis 3. Stomach with no gastritis or other concerning features. Food bolus was easily passed from the esophagus above the area stricturing into the stomach and was noted thereof. 4. Esophagus was again dilated to 19 mm without any complication. No active bleeding. Discharge patient long as he continues to tolerate his medications and oral intake. Planned outpatient follow-up. Overall doing better since intervention. Will likely need repeat intervention. Discussed previously with Dr. St who did not feel PEG tube is appropriate. Of note however this is a distal esophageal lesion for which stenting would carry with it a significant risk of migration. Defer to interventional gastroenterology for further management. Extensive discussion with patient and daughter. Patient remains recalcitrant as it relates to placement of PEG tube. The potential of gastrostomy tube placement was discussed both through palliative care and his primary care Dr. Rimma Fay. Patient was advised that gastrostomy tube would not be contraindicated with regard to his goals of care. We could continue to honor his wishes and provide palliative intent to that end. For today we will simply proceed with pneumatic dilation as necessary reevaluation of the area. Risk and benefits discussed questions answered. However counseled that the patient should they require further dilation our next intervention should strongly consider gastrostomy tube placement given he is not a candidate for resection gastrostomy tube would not be thus contraindicated as he will not need a conduit for reconstruction and this will allow him to continue with palliative intent and possibly avoid further necessary dilations and associated anesthetic risks.
[2020-09-30] MEDS ORDERED: LACTATED RINGERS 1,000 ML IV ONE ×2 (10:01→11:20)
[2020-09-30] MEDS ORDERED: LIDOCAINE-MPF 2% 5 ML VIAL ONE (11:24)
[2020-09-30] MEDS ORDERED: PROPOFOL 200 MG/20 ML VIAL IVP ONE (11:24)
[2020-09-30 11:55] VITALS: BP 156/65
--- NOTE | 2020-09-30 13:42 | ANESTHESIA POST OP EVALUATION ---
Anesthesia Post Eval - Post Anesthesia Eval Vitals: Last Vital Signs Temp 36.8 C 09/30/20 11:34 Pulse 54 L 09/30/20 11:55 Resp 15 09/30/20 11:55 BP 156/65 H 09/30/20 11:55 Pulse Ox 94 09/30/20 11:55 CV Function Including HR & BP: positive: Stable Pain Control: positive: Satisfactory Nausea & Vomiting: positive: Negative Mental Status: positive: Baseline Respiratory Status: Airway Patent Hydration Status: Satisfactory Anesthesia Complications: positive: None
== END 2020-09-30 09:43 | disposition home or self-care (01) ==
LOC: SDS 09:42
PROVIDERS: ATTEND Surgery
DX: C16.0 Malignant neoplasm of cardia (principal); K22.2 Esophageal obstruction; K44.9 Diaphragmatic hernia without obstruction or gangrene; C79.9 Secondary malignant neoplasm of unspecified site; I25.10 Atherosclerotic heart disease of native coronary artery without angina pectoris; I71.4 Abdominal aortic aneurysm, without rupture; I11.0 Hypertensive heart disease with heart failure; I50.9 Heart failure, unspecified; E11.42 Type 2 diabetes mellitus with diabetic polyneuropathy; G47.30 Sleep apnea, unspecified; K21.9 Gastro-esophageal reflux disease without esophagitis; E78.00 Pure hypercholesterolemia, unspecified; K59.09 Other constipation; Z79.4 Long term (current) use of insulin; Z79.82 Long term (current) use of aspirin; Z86.73 Personal history of transient ischemic attack (TIA), and cerebral infarction without residual deficits; Z92.21 Personal history of antineoplastic chemotherapy; Z92.3 Personal history of irradiation; H54.7 Unspecified visual loss; H91.90 Unspecified hearing loss, unspecified ear; Z95.1 Presence of aortocoronary bypass graft; Z87.891 Personal history of nicotine dependence
CPT/HCPCS: 43249; 43255; J7120

== ENCOUNTER 2020-10-10 13:05 | Outpatient (CLI) | payer MEDICARE, OTHER ==
--- NOTE | 2020-10-10 17:38 | CONSULTATION NOTE ---
Palliative Care Follow Up - Referral Referring Provider: Dr. Oni St Time of Visit: 4632-7963 Referral setting: Home Referral Reason: Met esophageal cancer/anxiety - Information Sources Records reviewed: Previous records reviewed History/Review of Systems obtained from: Patient, Family ( Criss present; daugther Lindy; Luzmaria on [employer]) Exam limitations: Clinical condition (patient with [facility]) - History of Present Illness Update Brief HPI Update: This is an 80-year-old gentleman who has recurrent metastatic distal esophageal adenocarcinoma, with progressive pulmonary mets. He has been on pembrolizumab, but most was found to have progression on PET scan and currently not getting treatment. He had been referred to hospice, but decision was made to wait, given patient may benefit from esophageal dilatation and related to his anxiety with his cognitive deficits. Patient was hospitalized end of July for a severe episode of dysphagia, and wasfound to have a "food bolus" on EGD at the gastroesophageal junctional stricture point, with less than 2 to 3 mm stricture, it did dilate up to 19 mm without complications. He recently underwent a dilatation about the previous month ago, the patient has not been following any kind of diet restrictions though had been counseled on precautions. His last dilatation was with Dr. Mahmood again, was able to dilate it to 18 mm. They did comment they saw a small hiatal hernia, as well as changes related to radiation and malignant progression of patient's distal esophageal malignancy. He did have some bleeding, but was able to manage it with cautery. Patient has tolerated this continuously, has had a little bit of choking the last couple days, but is not always compliant with his mechanical/dysphagia diet. The surgeon has adjusted for palliation, and particularly since most likely will continue to obstruct again, to consider possible PEG tube at time for next dilatation. Palliative care is meeting with patient, , and daughters for further discussion regarding goals of care today. Patient continues with mild cognitive deficits, his short-term memory is quite significant as far as poor recall. He is not safe living alone, his daughter Lindy has been staying caring for he and his . He gets quite anxious and perseverative as a result of his dementia, adding another layer of complexity. He has had some elevated blood sugars, patient does not like to "stick himself" more than once a day, so has been challenged to find a balance with his insulin. He is quite sedentary, denies any pain or distress, has had weight loss currently is at 189. Past Medical History: CHF diastolic with preserved function, hypertension, hyperlipidemia, CAD AAA, history of CVA, peripheral neuropathy, diabetes type 2 insulin-dependent, GERD, nocturia, chronic vision loss, chronic sinusitis, chronic hearing loss with hearing aids, 1 working kidney, depression, anxiety, osteoarthritis, chronic back pain, persistent fatigue, original esophageal diagnosis stage II 12/2018. Social History - Living Situation Living arrangement: At home Living Situation: With spouse/s.o. Support System: Patient lives at home with his Criss. Criss has progressive Parkinson's, and has had an acute fall with injury recently. Their daughter Lindy has been living with them for the last 4 weeks, with some breaks with her sisters. They do need supervision and oversight, has been challenged to find caregivers given the pandemic. Patient and are often resistant to new people in the home as well. Patient has 3 daughters, and 1 granddaughter who is the apple of his eye. They did have a alba holiday, making good memories. He is very animated and let up when he describes his relationship with his granddaughter as well as his holiday. Medications/Allergies - Medications Home Medications: Ambulatory Orders Medication Instructions Recorded Confirmed Insulin Glargine [Lantus Solostar] 35 units SUBQ QPM 06/12/19 10/10/20 Metoprolol Tartrate 25 mg ORAL BID 06/12/19 10/10/20 polyethylene glycoL 3350 [Miralax] 17 gm PO DAILY PRN 04/25/20 10/10/20 Pantoprazole [Protonix] 40 mg PO DAILY 06/20/20 10/10/20 Sucralfate [Carafate] 10 ml PO TID PRN 08/25/20 10/10/20 Isosorbide Dinitrate 30 mg PO DAILY 09/15/20 10/10/20 Rosuvastatin Calcium [Crestor] 10 mg PO DAILY 09/30/20 10/10/20 - Allergies Allergies/Adverse Reactions: Allergies Allergy/AdvReac Type Severity Reaction Status Date / Time No Known Drug Allergies Allergy Verified 08/24/20 11:29 Review of Systems - Constitutional Constitutional: reports: Fatigue, Poor appetite (but has done better with daughter present to help with food prep and meals), Weight loss (189). denies: Fever - Eyes Eyes: reports: Vision loss - Ears, Nose & Throat Ears, Nose & Throat: reports: Hearing loss, Hearing aids, Other (Choking better; some if doesn't pace self) - Cardiovascular Cardiovascular: reports: Decr. exercise tolerance. denies: Edema - Respiratory Respiratory: reports: Cough (occasionally with eating). denies: SOB at rest - Gastrointestinal Gastrointestinal: reports: Constipation (remains challenging to manage with STM issues), Poor appetite, Early satiety - Genitourinary Genitourinary: reports: Frequency - Musculoskeletal Musculoskeletal: reports: Back pain, Stiffness, Muscle weakness, Assistive devices (uses cane) - Integumentary Integumentary: reports: Dryness, Nail changes (fungal toes nails; caregiver did nail care; metal baler not available until end of Oct) - Neurological Neurological: reports: General weakness, Memory problems - Psychiatric Psychiatric: reports: Anxiety (remains perseverative even with daugther at [facility]) - Endocrine Endocrine: reports: Diabetes type 2 (average last week 181; this week 266) - All Other Systems All Other Systems: reports: Reviewed and negative (ROS limited as patient is a poor historian due to cognitive impairment and ROS supplemented by daughter, Lindy) Physical Exam - Vital Signs Temperature: 96.3 C Pulse Rate: 54 Respiratory Rate: 16 Blood Pressure: 153/67 - Physical Exam General Appearance: positive: No acute distress, Alert Eyes Bilateral: positive: Normal inspection ENT: positive: No signs of dehydration Neck: positive: Trachea midline. negative: Lymphadenopathy (R), Lymphadenopathy (L) Cardiovascular: positive: Regular rate & rhythm Respiratory: positive: No respiratory distress, Breath sounds nml Abdomen: positive: Soft, Nml bowel sounds, Other (+round) Skin: positive: Dryness (dry, scattered flaky skin), Other (feet improved on exam) Extremities: positive: No pedal edema Neurologic/Psychiatric: positive: Mood/affect nml, Disoriented to time, Weakness, Flat affect Palliative Care - POLST Patient has POLST: Yes POLST Status: DNR, Selective Treatment Pain: No pain Tiredness/Fatigue: Moderate (4-6) Drowsiness/Sedation: Comment (daughter reports quite sedenatry) Nausea: None Anorexia: Moderate (4-6), Weight loss Dyspnea: None Depression: Mild (1-3) Anxiety: Moderate (4-6) Feelings of wellbeing/Perceived Quality of Life: Good, Acceptable Sleep: Variable sleep pattern Constipation: Yes, Intermittent constipation Performance Status: Patient remains quite sedentary, does spend most of his time in the recliner. He is able to ambulate through the house, take short walks down to the mailbox. He has not had any recent falls. He does need some assistance with bathing, can dress independently. Does need help with his socks and shoes at times. Patient does have noted some functional decline, but is doing fairly well overall - Palliative Care Discussion: Lengthy discussion regarding consideration of PEG tube placement with next esophageal dilatation. Discussion at length benefits which include increased quantity of time, slower loss of weight, access for medications now and in the future if swallowing problems, and unsure how long going to be able to continue the dilatations. In the context patient still has stage IV disease, expected progressive decline, patient currently perceives his quality of life is good, is enjoying his family, is worried about not living in his house. Did discuss patient is quite perseverative, they added to his anxiety and distress, will certainly add to the complexity of his caregiving., And does not come without concern for complications. In the context of patient's dysphagia, Patient will still have difficulty managing secretions, which was the difficulty last time that led to the acute hospitalization. After much discussion, patient's goals when asked what matters the most, is "not being a burden", he had referred back to his conversation with Criss about DWD, and the decision they had made together was to take things as they come, and allow natural . In his reflection he talked about this again is good enough, he does understand it will be a needs to the end, but has still found the conversation and concept of tube feedings is quite intrusive overall. Daughter is wondering how many more times can be dilated, also again discussed transition to hospice when no longer option. Impression and Recommendations - Palliative Care Impression: This is a alba 80-year-old gentleman who has metastatic recurrent esophageal cancer with mets to the lung. He does have known esophageal mass to the distal end of esophagus, as well as complications from his radiation with strictures. He just underwent a third dilatation over the last couple months, with improvement of swallowing. Discussion today focused on given his current quality of life, weighing benefits and burdens of proceeding with possible PEG placement early October. Patient currently has had weight loss, is much more sedentary, but still perceives his quality of life is good. Palliative care providing support for goals of care conversation, pain and symptom management, and anticipatory guidance. Recommendations/Counseling Done: 1. Constipation. Patient continues to struggle with constipation, daughter ch allenged with patient's cognitive issues to titrate MiraLAX appropriately, and will continue to work with and complexity of situation. Patient's abdomen soft, no signs or symptoms of concern today. 2. Dysphagia. Patient starting to have a little bit of choking with eating, has not been absolutely compliant with his diet. Daughter does try to oversee, but patient "sneaks" and has very little insight into the concerns regarding may add to another food bolus or choking. Patient is staying hydrated, is continuing with weight loss, but is doing fairly well overall. Patient is scheduled for repeat dilatation in October, goals of care conversation regarding PEG tube placement or not. 3. Diabetes type 2. Blood sugars poorly controlled. I discussed doing twice daily dosing given patient's fluctuating with blood sugars, patient does not like "to stick himself twice a day". Will increase basal to 35 units, will continue to monitor. Trying to keep in a moderate range between 150 and 300 given goals of care. 4. Moderate Dementia. Patient continues to have worsening short-term memory issues, has underlying anxiety, and perseverative behaviors. Patient is able to participate in conversation, and weigh in with values. He does have little insight into some of the nuances of medical decision making, but is able to participate in our conversation today and late his needs known. These are actually consistent with his advance care planning documents prior when he filled out. 5. Advanced care planning. Patient does have POLST with DN AR/DNI and selective treatments. Family meeting today, discussion regarding PEG tube placement, patient in the end expresses needs and does not want to proceed with this. Patient does have pending hospice referral, awaiting time when patient no longer able to get further dilatations. Concern regarding patient's perseverative anxiety, with hospice at this point would be too anxious about "dying". Addendum. Did speak with Dr. Mahmood, with patient's decision and family support of decision. Will not continue with PEG tube he did share it was progressive tumor he saw on there, will continue to dilate as long as able, risk of bleeding may be the deciding factor. When patient no longer or able to benefit from dilatation, will transition to hospice. Time Spent: 60 minutes with greater than 50% of this done in counseling coordination of care and evaluation of pain and symptom management and anticipatory guidance
== END 2020-10-10 13:06 | disposition home or self-care (01) ==
LOC: PC 13:05
PROVIDERS: ATTEND Nurse Practitioner Adult Health
DX: Z51.5 Encounter for palliative care (principal); K59.00 Constipation, unspecified; R13.10 Dysphagia, unspecified; E11.65 Type 2 diabetes mellitus with hyperglycemia; E11.42 Type 2 diabetes mellitus with diabetic polyneuropathy; E11.29 Type 2 diabetes mellitus with other diabetic kidney complication; F03.90 Unspecified dementia, unspecified severity, without behavioral disturbance, psychotic disturbance, mood disturbance, and anxiety; F41.9 Anxiety disorder, unspecified; C15.9 Malignant neoplasm of esophagus, unspecified; C78.00 Secondary malignant neoplasm of unspecified lung; I11.0 Hypertensive heart disease with heart failure; I50.9 Heart failure, unspecified; Z79.4 Long term (current) use of insulin; Z66 Do not resuscitate
CPT/HCPCS: 99350

== ENCOUNTER 2020-10-24 16:18 | Outpatient (CLI) | payer MEDICARE, OTHER | END 2020-10-24 16:19 | disposition home or self-care (01) | LOC: COV 16:18 | PROVIDERS: ATTEND Surgery | DX: Z01.812 Encounter for preprocedural laboratory examination (principal); K22.2 Esophageal obstruction; E11.9 Type 2 diabetes mellitus without complications; Z20.822 Contact with and (suspected) exposure to COVID-19 ==

== ENCOUNTER 2020-10-28 08:20 | Day surgery (SDC) | payer MEDICARE, OTHER ==
[2020-10-28] MEDS ORDERED: LACTATED RINGERS 1,000 ML IV ONE ×2 (08:51→10:17)
[2020-10-28] MEDS ORDERED: LIDOCAINE-MPF 2% 5 ML VIAL ONE (09:12)
[2020-10-28] MEDS ORDERED: PROPOFOL 200 MG/20 ML VIAL IVP ONE (09:12)
--- NOTE | 2020-10-28 09:16 | ANESTHESIA ---
Pre-Anesthesia VS, & Labs - Diagnosis esophageal stricture, esophageal cancer - Procedure EGD with dilation Vital Signs: Temp Pulse Resp BP Pulse Ox 36.3 C L 77 14 114/81 H 98 10/28/20 08:35 10/28/20 08:35 10/28/20 08:35 10/28/20 08:35 10/28/20 08:35 Height: 5 ft 11 in Weight (kg): 86 kg Body Mass Index: 26.4 BMI Classification: Overweight - NPO >8 hours Home Medications and Allergies Home Medications: Ambulatory Orders Furosemide [Lasix] 40 mg PO DAILY 10/28/20 Insulin Glargine [Lantus Solostar] 30 units SUBQ QPM 06/12/19 Metoprolol Tartrate 25 mg ORAL BID 06/12/19 polyethylene glycoL 3350 [Miralax] 17 gm PO DAILY PRN 04/25/20 Pantoprazole [Protonix] 40 mg PO DAILY 06/20/20 Sucralfate [Carafate] 10 ml PO TID PRN 08/25/20 Isosorbide Dinitrate 30 mg PO DAILY 09/15/20 Rosuvastatin Calcium [Crestor] 10 mg PO DAILY 09/30/20 Furosemide [Lasix] 40 mg PO DAILY 10/28/20 Allergies/Adverse Reactions: Allergies Allergy/AdvReac Type Severity Reaction Status Date / Time No Known Drug Allergies Allergy Verified 10/28/20 08:40 Anes History & Medical History - Anesthetic History Anesthesia Complications: reports: No previous complications Family history of Anesthesia Complications: Denies Family history of Malignant Hyperthermia: Denies - Medical History Cardiovascular: reports: Congestive heart failure, Hypertension, High cholesterol, Coronary artery disease, Other Pulmonary: reports: Sleep apnea Gastrointestinal: reports: GERD, Chronic constipation, Other Urinary: reports: Nocturia, Other Neuro: reports: CVA, Peripheral neuropathy Musculoskeletal: reports: Osteoarthritis, Fatigue, Chronic back pain, Other Endocrine/Autoimmune: reports: Type 2 diabetes Blood Disorders: reports: None Skin: reports: None Smoking Status: Former smoker History of Cancer?: Yes - Surgical History General: Colonoscopy, EGD Cardiothoracic: CABG, AAA Orthopedic: Knee replacement Exam Mouth Openin Fingerbreadth Neck Mobility: Normal Mallampati classification: II Thyromental Distance: 4-6 cm Plan Anesthesia Type: MAC Consent for Procedure(s) Verified and Reviewed: Yes Code Status: Attempt Resuscitation ASA classification: 4-Incapacitating disease Is this case an emergency?: No
--- NOTE | 2020-10-28 09:28 | PROVIDER PROGRESS NOTE ---
Progress Note Chief Complaint: Esophageal cancer with recurrent stricture History of Present Illness: 80-year-old male with multiple comorbid states including CHF, CAD, diabetes who has metastatic esophageal cancer and has undergone immunotherapy together with external beam radiation. Historically presented with with food bolus after having undergone pneumatic dilatation. Endoscopic findings at the time of his hospital admission were as follows: 1. Gastroesophageal junctional mass with stricturing pinpoint less than 2 to 3 mm dilated initially to 15 mm without any complication. Proximal to this was an impacted food bolus which was easily passed after dilatation. 2. Easily able to traverse the area of concern entering the duodenum which was without any pathology, no duodenitis 3. Stomach with no gastritis or other concerning features. Food bolus was easily passed from the esophagus above the area stricturing into the stomach and was noted thereof. 4. Esophagus was again dilated to 19 mm without any complication. No active bleeding. Discharge patient long as he continues to tolerate his medications and oral intake. Planned outpatient follow-up. Overall doing better since intervention. Will likely need repeat intervention. Discussed preoperatively with Dr. St who did not feel PEG tube is appropriate. Of note however this is a distal esophageal lesion for which stenting would carry with it a significant risk of migration. Defer to interventional gastroenterology for further management. Hold aspirin at this time. Interval history is as follows: Continues to have pickups, Hiccups and other concerns as it relates to swallowing. Has done initially well following most recent intervention. Patient remains recalcitrant as it relates to its placement. Physical Exam General Appearance: positive: No acute distress, Alert, Mild distress Eyes Bilatera: positive: Normal inspection, PERRL, EOMI ENT: positive: ENT inspection nml Neck: positive: Nml inspection Respiratory: positive: Chest non-tender, No respiratory distress, Breath sounds nml. negative: Wheezes, Rales, Rhonchi Cardiovascular: positive: Regular rate & rhythm Abdomen: positive: Non-tender Skin: positive: Color nml Extremities: positive: Non-tender, Full ROM, Nml appearance Neurologic/Psychiatric: positive: Oriented x3, CN's nml (2-12), Motor nml, Sensation nml, Mood/affect nml Assessment and Plan: 80-year-old male with multiple comorbid states including CHF, CAD, diabetes who has metastatic esophageal cancer and has undergone immunotherapy together with external beam radiation. He presents with food bolus after having 80-year-old male with multiple comorbid states including CHF, CAD, diabetes who has metastatic esophageal cancer and has undergone immunotherapy together with external beam radiation. Historically presented with with food bolus after having undergone pneumatic dilatation. Here for repeat pneumatic dilation. Has refused PEG tube. Of note however this is a distal esophageal lesion for which stenting would carry with it a significant risk of migration. Defer to interventional gastroenterology for further management. Extensive discussion with patient and daughter. Patient remains recalcitrant as it relates to placement of PEG tube. The potential of gastrostomy tube placement was discussed both through palliative care and his primary care Dr. Rimma Fay. For today we will simply proceed with pneumatic dilation as necessary reevaluation of the area. Risk and benefits discussed questions answered. However counseled that the patient should they require further dilation our next intervention should strongly consider gastrostomy tube placement given he is not a candidate for resection gastrostomy tube would not be thus contraindicated as he will not need a conduit for reconstruction and this will allow him to continue with palliative intent and possibly avoid further necessary dilations and associated anesthetic risks. Risk and benefits discussed, the former include amongst others bleeding, infection, perforation, need for further procedures/surgery, missed lesions, as well as anesthetic complications of heart attack, stroke, pulmonary embolism and . Before any definitive interventions will proceed with this first. Please note that voice recognition software was used to transcribe this note and inadvertent errors might persist in spite of review and editing. I am obliged to you for your attention. I am thankful to you for allowing me to participate with you in this care of this patient.
[2020-10-28] MEDS ORDERED: ePHEDrine 50 MG/ML VIAL IVP PRN (10:18)
[2020-10-28] MEDS ORDERED: NALOXONE 0.4 MG/ML VIAL IVP PRN (10:18)
[2020-10-28] MEDS ORDERED: HYDROmorphone 0.5 MG/0.5 ML SYRINGE IVP PRN (10:18)
[2020-10-28] MEDS ORDERED: ATROPINE ABBOJECT 1 MG/10 ML SYRINGE IVP PRN (10:18)
[2020-10-28] MEDS ORDERED: MORPHINE 2 MG/ML CARPUJECT IVP PRN (10:18)
[2020-10-28] MEDS ORDERED: fentaNYL 100 MCG/2 ML VIAL IVP PRN (10:18)
[2020-10-28] MEDS ORDERED: METOCLOPRAMIDE 10 MG/2 ML VIAL IVP PRN (10:18)
[2020-10-28] MEDS ORDERED: ONDANSETRON 4 MG/2 ML VIAL IVP PRN (10:18)
[2020-10-28 10:31] VITALS: BP 107/69
[2020-10-28] MEDS ORDERED: LACTATED RINGERS 1,000 ML IV SCH (11:00)
== END 2020-10-28 08:21 | disposition home or self-care (01) ==
LOC: SDS 08:20
PROVIDERS: ATTEND Surgery
PROC: 0D748ZZ Dilation of Esophagogastric Junction, Via Natural or Artificial Opening Endoscopic (ICD-10-PCS; 2020-10-28)
PROC: 0DB58ZX Excision of Esophagus, Via Natural or Artificial Opening Endoscopic, Diagnostic (ICD-10-PCS; 2020-10-28)
PROC: 0W3P8ZZ Control Bleeding in Gastrointestinal Tract, Via Natural or Artificial Opening Endoscopic (ICD-10-PCS; principal; 2020-10-28 09:15)
DX: C15.9 Malignant neoplasm of esophagus, unspecified (principal); K22.2 Esophageal obstruction; K44.9 Diaphragmatic hernia without obstruction or gangrene; I11.0 Hypertensive heart disease with heart failure; I50.9 Heart failure, unspecified; I25.10 Atherosclerotic heart disease of native coronary artery without angina pectoris; E11.9 Type 2 diabetes mellitus without complications; Z92.25 Personal history of immunosuppression therapy; R13.10 Dysphagia, unspecified; K21.9 Gastro-esophageal reflux disease without esophagitis
CPT/HCPCS: 43239; 43249; 43255; J7120

== ENCOUNTER 2020-11-19 14:30 | Outpatient (CLI) | payer MEDICARE, OTHER ==
--- NOTE | 2020-11-19 17:16 | CONSULTATION NOTE ---
Palliative Care Follow Up - Referral Referring Provider: Dr. Oni St Time of Visit: [id number] Referral setting: Home Referral Reason: Met Esophageal CA - Information Sources Records reviewed: Previous records reviewed History/Review of Systems obtained from: Patient, Family (Criss; daughter Lindy present; Lyudmila and Luzmaria on zoom) Exam limitations: Clinical condition (patient with STM issues) - History of Present Illness Update Brief HPI Update: This is an 80-year-old gentleman has recurrent metastatic distal esophageal adenocarcinoma, with progressive pulmonary mets. He is currently on supportive care, as was found to have progression on PET scan. He had been referred to hospice in July, but decision was made to wait given patient may was benefiting from esophageal dilatation related to his anxiety and his cognitive deficits as well. Patient received another dilatation in September and then follow-up last one was on 10/28. Patient with obstructing the level of the gastroesophageal junction, they did do a pneumatic dilatation to 18 mm, Unfortunately there was some bleeding postprocedural, and area was addressed for bleeding with diffuse bleeding at the conclusion of the case. They did need to cauterize at this point in time, understanding that he was no longer a further candidate to do an EGD by general surgery, would need further follow-up from GI specialist. Patient has been quite adamant he has not wanted a PEG tube up to this point. And he was not a candidate for a stent because it would cause significant risk of migration. Patient did have a significant choking spell a couple weeks ago, part of this is because of patient's severe short-term memory, he forgets he is to be on a very liquid diet. He gets very angry with himself about his forgetfulness. He is taking in less and less, they are doing soups, but he is spitting up saliva and mostly just drinking apple cider. He is sleeping more, is more dizzy, is sleeping in his recliner. His biggest concern is not to be a burden, palliative care present to provide family conference for conversation regarding transition to hospice. Past Medical History: With preserved function, hypertension, hyperlipidemia, CAD, AAA, history of CVA, peripheral neuropathy, diabetes type 2 insulin-dependent, GERD, nocturia, chronic vision loss, Chronic sinusitis, chronic hearing loss with hearing aids, 1 working kidney, depression, anxiety, osteoarthritis, chronic back pain, persistent fatigue, original esophageal diagnosis stage II 12/2018. Social History - Living Situation Living arrangement: At home Living Situation: With spouse/s.o. Support System: Patient lives at home with his Criss, they have been over 50 years. Criss has progressive Parkinson's, and has had several recent falls and hospitalizations. Her dementia is getting worse, as well as her distress with anyone in the home. Their daughter Lindy has been living with them for the last couple months, with some breaks given to her by her sisters. They both need supervision and oversight, has been challenged to find caregivers in the pandemic. Patient and are often distressed with new people or people in the home, as there memory issues feed into this. Patient does have 3 daughters, Natali, Luzmaria, Simona and 1 granddaughter Natalie who is see "apple of his eye". Medications/Allergies - Medications Home Medications: Ambulatory Orders Medication Instructions Recorded Confirmed Insulin Glargine [Lantus Solostar] 10 - 20 units SUBQ QPM PRN 06/12/19 10/28/20 Metoprolol Tartrate 25 mg ORAL BID 06/12/19 11/19/20 polyethylene glycoL 3350 [Miralax] 17 gm PO DAILY PRN 04/25/20 11/19/20 Pantoprazole [Protonix] 40 mg PO DAILY 06/20/20 11/19/20 Sucralfate [Carafate] 10 ml PO TID PRN 08/25/20 11/19/20 Isosorbide Dinitrate 30 mg PO DAILY 09/15/20 11/19/20 - Allergies Allergies/Adverse Reactions: Allergies Allergy/AdvReac Type Severity Reaction Status Date / Time No Known Drug Allergies Allergy Verified 10/28/20 08:40 Review of Systems - Constitutional Constitutional: reports: Fatigue, Poor appetite (but has done better with daughter present to help with food prep and meals; but taking in less last week; fearful of choking; anorexic), Weight loss (189 10/10- today 183 with multiple layers on). denies: Fever - Eyes Eyes: reports: Vision loss - Ears, Nose & Throat Ears, Nose & Throat: reports: Hearing loss, Hearing aids, Other (Choking worsening again) - Cardiovascular Cardiovascular: reports: Decr. exercise tolerance. denies: Edema - Respiratory Respiratory: reports: Cough (occasionally with eating). denies: SOB at rest - Gastrointestinal Gastrointestinal: reports: Constipation (remains challenging to manage with STM issues), Poor appetite, Early satiety, Other (fearful of eating) - Genitourinary Genitourinary: reports: Frequency - Musculoskeletal Musculoskeletal: reports: Back pain, Stiffness, Muscle weakness, Assistive devices (uses cane) - Integumentary Integumentary: reports: Dryness, Nail changes (fungal toes nails; caregiver did nail care; frame polisher not available until end of Oct) - Neurological Neurological: reports: General weakness, Memory problems (worsening; very perseverative) - Psychiatric Psychiatric: reports: Anxiety (remains perseverative even with daugther at home) - Endocrine Endocrine: reports: Diabetes type 2 (min. insulin with intake; running around 200's; has sensor monitor) - Hematologic/Lymphatic Hematologic/Lymph: denies: Recurrent infections - All Other Systems All Other Systems: reports: Reviewed and negative (ROS limited as patient is a poor historian due to cognitive impairment and ROS supplemented by daughterLindy) Physical Exam - Vital Signs Temperature: 97.9 C Pulse Rate: 58 Respiratory Rate: 18 O2 Saturation: 95 (ra @ rest) Blood Pressure: 112/64 - Physical Exam General Appearance: positive: No acute distress, Alert, Anxious Eyes Bilateral: positive: Normal inspection ENT: positive: No signs of dehydration Neck: positive: Trachea midline. negative: Lymphadenopathy (R), Lymphadenopathy (L) Cardiovascular: positive: Regular rate & rhythm Respiratory: positive: No respiratory distress, Breath sounds nml. negative: Rhonchi Abdomen: positive: Soft, Nml bowel sounds, Other (+round) Skin: positive: Dryness (dry, scattered flaky skin), Other (bathing about every other week much to daughter's frustration) Extremities: positive: No pedal edema Neurologic/Psychiatric: positive: Mood/affect nml, Disoriented to time, Weakness, Flat affect Palliative Care - POLST Patient has POLST: Yes POLST Status: DNR, Selective Treatment Pain: Pain unchanged, Location (back from old injury; no sternal pain) Tiredness/Fatigue: Moderate (4-6) Drowsiness/Sedation: Moderate (4-6) (sleeping more) Feelings of wellbeing/Perceived Quality of Life: Fair, Acceptable, Worsening Constipation: Yes, Intermittent constipation (difficulty tracking) Performance Status: Patient is having functional decline, is ambulatory, but does spend most of his time in the recliner. He is having intermittent dizziness, decreased intake, and slowing down particularly over the last week. - Palliative Care Discussion: Given patient's perseverative nature, had pushed out hospice referral as to find balance of anxiety and family support. Patient has done fairly well up to this point in time, we did discuss his last EGD, they were unable to repeat this, and expected to have further decline. Patient does understand the seriousness of a basic level, has told me multiple times I have "stage IV cancer", as well as the fact he wanted to do DWD, but Criss had talk to him about not picking the time that he dies, but allowing it to happen, they are [employer] and members of [facility]. I did have hospice nurse accompany me, to help with the transition and handoff. Lindy was present, Criss was present, and daughters Luzmaria and Lyudmila were on zoon. Questions were answered. After much discussion, everyone was in agreement that it was time to transition to hospice, including patient, and that would provide some support particularly in the context of his worsening dysphagia and choking episodes. There had been multiple previous conversations regarding PEG tube placement, both with myself and the surgeon, patient has been very consistent in his declining this intervention, not wanting to be a burden and also not wanting to extend his sufferingPatient does have a POLST with DN AR/DNI and selective treatments. Goals are transitioning to comfort focused goals, will continue to work with Dr. Gutierrez in this transition, patient and only able to take in small amounts of information. Impression and Recommendations - Palliative Care Impression: This is an 80 year old gentleman has metastatic recurrent esophageal cancer with mets to the lung. He is noted esophageal mass at the distal end of esophagus, as well as complications from his radiation with strictures. He received his fourth and last dilatation on 10/28 with only temporary improvement of swallowing. In the context of patient's increased dysphagia and choking episodes, goals of care are currently to focus on comfort, and transition to hospice. Recommendations/Counseling Done: 1. Dysphagia. Patient is already experiencing increasing difficulty with getting fluids and even pured soup down. He is having more trouble with spitting and saliva, is fearful of choking, did have episode a couple weeks ago. He is losing weight, having episodes of dizziness, and presents with functional decline as well. He is sleeping more, but does not seem in any kind of distress. Daughters are appropriately concerned about transition, and patient suffering with any kind of choking, and ability to be able to manage his symptoms. Counseling provided regarding anticipatory guidance and use of comfort meds. 2. Diabetes type 2. Blood sugars continue to fluctuate, daughter has been watching numbers, with decreased intake, and weight loss patient is not needed insulin at times. She is aware high blood sugars are less of a problem than low, he does have a sensor, continue to monitor for comfort. 3. Moderate dementia. Patient continues to have worsening short-term memory issues, does have ongoing anxiety and perseverative behaviors. He can participate in conversation and weigh in with values, he was able to participate in conversation today regarding transition to hospice, daughters and all in agreement, patient did choose to sign consent. 4. Advanced care planning. Completed family meeting in the context of goals of care, introduced hospice, given patient's short-term memory and short asked attention span, deferred to hospice for further anticipatory guidance regarding hospice benefit, hospice nurse present and palliative care visit completed. 45 minutes with greater than 50% of his done in counseling with family meeting, clarification of goals of care, review of anticipatory guidance and transition to hospice team.
== END 2020-11-19 14:31 | disposition home or self-care (01) ==
LOC: PC 14:30
PROVIDERS: ATTEND Nurse Practitioner Adult Health
DX: Z51.5 Encounter for palliative care (principal); C15.9 Malignant neoplasm of esophagus, unspecified; C78.00 Secondary malignant neoplasm of unspecified lung; K22.2 Esophageal obstruction; R13.10 Dysphagia, unspecified; F41.9 Anxiety disorder, unspecified; F03.90 Unspecified dementia, unspecified severity, without behavioral disturbance, psychotic disturbance, mood disturbance, and anxiety; R42 Dizziness and giddiness; E11.9 Type 2 diabetes mellitus without complications; R63.0 Anorexia; H54.7 Unspecified visual loss; H91.90 Unspecified hearing loss, unspecified ear; K59.00 Constipation, unspecified; R35.0 Frequency of micturition; Z66 Do not resuscitate; Z79.4 Long term (current) use of insulin
CPT/HCPCS: 99349

== ENCOUNTER 2021-01-24 02:49 | Outpatient (CLI) | payer MEDICARE, OTHER | END 2021-01-24 02:50 | disposition EMS.NT | LOC: EMS 02:49 | DX: Z03.89 Encounter for observation for other suspected diseases and conditions ruled out (principal) ==